=== PATIENT | male | born 1945 | race Caucasian/White ===

== ENCOUNTER 2018-03-17 07:44 | Inpatient (IN) | payer MEDICARE, OTHER ==
--- NOTE | 2018-03-17 08:19 | ED PDOC ---
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 Denies trauma. Denies fever. Denies hip pain. Denies acute skin discoloration. Denies loss of sensation. He reported no chest pain or shortness of breath. Denies palpitations. 03/18/18 07:56 Time/Duration: 4-6 hours Symptom Onset: Sudden Symptom Course: Unchanged Quality: Aching Activities at Onset: Light Context: Home Past Medical History - Provider Review Nursing Documentation Reviewed: Yes - Infectious Disease Hx of Infectious Diseases: None - Cardiac Hx Cardiac Disorders: Yes Hx Hypertension: Yes - Pulmonary Hx Respiratory Disorders: No - Neurological Hx Neurological Disorder: No - HEENT Hx HEENT Disorder: No - Renal Hx Renal Disorder: No - Endocrine/Metabolic Hx Endocrine Disorders: No - Hematological/Oncological Hx Blood Disorders: Yes Other/Comment: DVT - Integumentary Hx Dermatological Disorder: No - Musculoskeletal/Rheumatological Hx Musculoskeletal Disorders: No - Gastrointestinal Hx Gastrointestinal Disorders: No - Genitourinary/Gynecological Hx Genitourinary Disorders: Yes Hx Prostate Problems: Yes - Psychiatric Hx Psychophysiologic Disorder: No Hx Substance Use: No Family/Social History - Physician Review Nursing Documentation Reviewed: Yes Family/Social History: No Known Family HX Smoking Status: Never Smoked Hx Alcohol Use: No Hx Substance Use: No Allergies/Home Meds Allergies/Adverse Reactions: Allergies Penicillins Allergy (Verified 03/17/18 08:00) SHORTNESS OF BREATH Home Medications: Home Meds Medication Instructions Recorded Confirmed Benazepril HCl [Lotensin] 40 mg PO DAILY 03/17/18 03/17/18 Doxazosin [Cardura] 4 mg PO DAILY 03/17/18 03/17/18 Metoprolol Tartrate [Lopressor] 50 mg PO DAILY 03/17/18 03/17/18 Simvastatin [Zocor] 20 mg PO DAILY 03/17/18 03/17/18 Tamsulosin [Flomax] 0.4 mg PO BID 03/17/18 03/17/18 amLODIPine [Norvasc] 5 mg PO DAILY 03/17/18 03/17/18 Review of Systems - Review of Systems Constitutional: absent: Fevers Respiratory: absent: SOB Cardiovascular: Edema, Calf Pain (Left calf pain). absent: Chest Pain, Palpitations, QUINN Gastrointestinal: absent: Abdominal Pain, Diarrhea, Nausea, Vomiting Musculoskeletal: absent: Back Pain Skin: Rash Neurological: absent: Headache, Dizziness, Focal Weakness Endocrine: absent: Polyuria Hemo/Lymphatic: absent: Easy Bleeding, Easy Bruising Psychiatric: absent: Depression Physical Exam - Physical Exam Narrative Physical Exam (Text): 03/17/18 08:21 Head: Atraumatic. Normocephalic. Eyes: PERRL. EOMI. Conjunctivae are not pale. ENT: Mucous membranes are moist and intact. Oropharynx is clear and symmetric. Neck: Supple. No jvd. No meningeal signs. Cardiovascular: Tachycardic. Systolic murmur. Pulmonary/Chest: No evidence of respiratory distress. Clear to auscultation bilaterally. No wheezing, rales or rhonchi. Abdominal: Obese. Nontender. Back: No CVA tenderness. Extremities: Bilateral lower extremity edema. Left lower extremity is edematous , tender to palpation in left calf with overlying erythema. Intact senstation to touch. No achilles pain. No pus or drainage. No knee or hip pain. There is PALPABLE DP pulse in lower extremity. Skin: Erythema and edema noted to left lower extremity. Neurological: Alert, awake, and oriented. No slurred speech. Motor strength intact in lower extremity. Sensation intact. Psychiatric: Good eye contact. No expression of depression or suicidal ideation. Vital Signs Reviewed: Yes Vital Signs Temp Pulse Resp BP Pulse Ox 03/17/18 12:45 112 H 18 127/53 L 03/17/18 11:30 112 H 19 127/53 L 99 03/17/18 09:48 97 F L 116 H 19 147/84 98 Temperature: Afebrile Blood Pressure: Hypertensive Pulse: Tachycardic Appearance: Positive for: Uncomfortable Pain Distress: Moderate Mental Status: Positive for: Alert and Oriented X 3 Medical Decision Making ED Course and Treatment: 03/17/18 08:22 Impression: 72 year old male presents to the Emergency department complaining of left calf discomfort since 3 am this morning. Differential Diagnosis included but are not limited to: DVT , peripheral vascular disease, arrhythmia, atrial fibrillation, pulmonary embolism, cellulitis Plan: -- EKG -- Labs -- Chest X-ray -- Urinalysis -- Reassess and disposition Prior Visits: Notes and results from previous visits were reviewed. Progress Notes: Patient reports that he has prior hx of DVT in left leg. States that he at one time took Warfarin but currently discontinued. He reports sudden onset of left lower leg pain in calf. He is currently neuro intact. Morphine administered for pain. On monitor he is noted to be tachycardic. He denies any knowledge of prior history of any heart arrhythmias. No prior visits are noted here. He denies any chest pain or shortness of breath with exertion. I discussed abnormal EKG and heart rhythm with patient in laymen's terms. I discussed treatment plan with patient including ordering iv pain medication as well as ultrasound. He continues to deny any chest pain or shortness of breath. Ultrasound negative for DVT. Pain improved with serial exams. He has a palpable pulse, warm foot, no loss of sensation. NO trauma reported. Ddimer elevated. He remains tachycardic even after pain control. Right bundle branch block noted. No prior ekg available as patient's physician in [place]. I have ordered CT angio of chest to evaluate for PE. I reviewed indications for this test including tachycardia, RBBB, elevated ddimer. I spent 5 minutes reviewed labs and differential diagnosis and abnormal heart rhythm. He initially consents to CT angio. When patient went to CT scan, tech reports "the patient doesn't think he needs this test and is refusing it now". Patient returned to ED. Denies chest pain or shortness of breath, Remains tachycardic. He is agreeable to initiating Heparin due to risk of pulmonary embolism and elevated ddimer. Risks/benefits of this reviewed. Witness, RN present. Patient has given me permission for me to speak to her daughter on the phone. Labs and ekg and initial results reviewed with daughter. Patient agreeable to admission and heparin. He is agreeable to CT angio of chest. Patient's case d.w hospitalist who accepts admission. I have endorsed CT angio directly to hospitalist team Dr. Haque for follow-up and evaluation. Patient requires serial exams of lower extremity, but he remains comfortable. If pain persistent suggest arterial study, suggest serial exams and neurovacular checks to lower extremity. In Emergency Department foot is warm with palpable pulse. Heparin has been continued. Reassessment Condition: Re-examined - Lab Interpretations Lab Results: 03/17/18 07:55 03/17/18 07:55 Lab Results 03/17/18 08:24: POC Glucose (mg/dL) 169 H 03/17/18 07:55: Sodium 143, Potassium 3.9, Chloride 100, Carbon Dioxide 28, Anion Gap 19, BUN 19, Creatinine 0.7 L, Est GFR ( Amer) > 60, Est GFR ( Non-Af Amer) > 60, Random Glucose 197 H, Calcium 9.7, Total Bilirubin 0.4, AST 21, ALT 28, Alkaline Phosphatase 101, Lactate Dehydrogenase 467, Total Creatine Kinase 46, Troponin I < 0.01, NT-Pro-B Natriuret Pep 205, Total Protein 8.2, Albumin 4.6, Globulin 3.6, Albumin/Globulin Ratio 1.3 03/17/18 07:55: PT 11.1, INR 0.97, APTT 28.9, D-Dimer, Quantitative 2720 H 03/17/18 07:55: WBC 12.9 H, RBC 4.64, Hgb 14.2, Hct 41.0 L, MCV 88.4, MCH 30.6, MCHC 34.6, RDW 13.0, Plt Count 170, MPV 9.5, Gran % 88.4 H, Lymph % (Auto) 4.6 L , Brooks % (Auto) 6.6 H, Eos % (Auto) 0.2 L, Baso % (Auto) 0.2, Gran # 11.43 H, Lymph # (Auto) 0.6 L, Brooks # (Auto) 0.9 H, Eos # (Auto) 0.0, Baso # (Auto) 0.02 , Neutrophils % (Manual) 77 H, Band Neutrophils % 9 H, Lymphocytes % (Manual) 6 L, Monocytes % (Manual) 6, Eosinophils % (Manual) 2, Platelet Evaluation Normal - RAD Interpretation Radiology Orders: 03/17/18 08:17 CHEST PORTABLE [RAD] Stat 03/17/18 08:36 DUPLEX LOWER EXTRM VEIN LEFT [US] Stat - EKG Interpretation Interpreted by ED Physician: Yes Type: 12 lead EKG - Medication Orders Current Medication Orders: Amlodipine Besylate (Norvasc) 5 mg PO DAILY [facility] Aspirin (Aspirin Chewable) 81 mg PO DAILY [facility] Atorvastatin Calcium (Lipitor) 10 mg PO DIN [facility] Last Admin: 03/17/18 17:31 Dose: 10 mg Gabapentin (Neurontin) 300 mg PO DAILY [facility] PRN Reason: Protocol Heparin Sodium/Sodium Chloride (Heparin 01282 Units/250ml 1/2 Normal Saline) 25 ,000 units in 250 mls @ 18.885 mls/hr IV .[id number] PRN; Protocol; 18 UNITS/KG/HR PRN Reason: ADJUST RATE PER PROTOCOL Last Titration: 03/18/18 00:20 Dose: 17 units/kg/hr, 17.836 mls/hr Titration Intervention Document 03/18/18 00:20 FDE (Rec: 03/18/18 00:20 FDE [id number]) Titration Intake Titration Intake 50 Cumulative Intake 50 Cumulative Intake (Rx) 300 Waste Amount 0 Container Volume 200 Titration Dosing Titration Dose 17 IV Rate 17.836 Intake/Decrease Decreased Cumulative Dose 38194 Ceftriaxone Sodium (Rocephin 1 Gram Ivpb) 1 gm in 100 mls @ 100 mls/hr IVPB DAILY [facility] PRN Reason: Protocol Insulin Human Lispro (Humalog Low) 0 units SC ACHS [facility] PRN Reason: Protocol Last Admin: 03/17/18 21:43 Dose: Not Given Non-Admin Reason: Blood Sugar Parameter [facility] Blood Glucose Document 03/17/18 21:43 JOHN (Rec: 03/17/18 21:44 [id number] Blood Glucose Finger Stick Blood Glucose (70-120) 140 Metoprolol Tartrate (Lopressor) 50 mg PO DAILY [facility] Morphine Sulfate (Morphine) 2 mg IVP Q6H PRN PRN Reason: Pain, moderate (4-7) Last Admin: 03/17/18 19:08 Dose: 2 mg MAR Pain Assessment Document 03/17/18 19:08 FRIDA (Rec: 03/17/18 19:08 FRIDA [id number]) Pain Reassessment Is this a pain reassessment? No Sleep Is patient sleeping during reassessment? No Presence of Pain Presence of Pain Yes IVP Administration Document 03/17/18 19:08 FRIDA (Rec: 03/17/18 19:08 FRIDA [id number]) Charges for Administration # of IVP Administrations 1 Re-Assess: MAR Pain Assessment Document 03/17/18 20:08 KOPPS (Rec: 03/17/18 21:23 KOS [id number]) Pain Reassessment Is this a pain reassessment? Yes Sleep Is patient sleeping during reassessment? No Presence of Pain Presence of Pain No Pain Scale Used Pain Scale Used Numeric Pantoprazole Sodium (Protonix Ec Tab) 40 mg PO DAILY SERGIO Tamsulosin HCl (Flomax) 0.4 mg PO DAILY SERGIO Discontinued Medications Gabapentin (Neurontin) 300 mg PO STAT STA PRN Reason: Protocol Stop: 03/17/18 22:00 Last Admin: 03/17/18 22:07 Dose: 300 mg Behavioural Document 03/17/18 22:07 KOPPS (Rec: 03/17/18 22:07 KOPPS [id number]) Maintenance Maintenance Dose Yes Nonmedicinal Nonmedicinal Interventions Redirect Therapeutic Communication Activity Behavior Behavior for Medication: Anxiety Re-Assess: Reassess Psych Meds Document 03/17/18 23:07 KOJESSICAS (Rec: 03/18/18 05:27 KOPPS [id number]) Reassess Psych Med Effective Heparin Sodium (Porcine) (Heparin) 4,000 units IV ONCE ONE PRN Reason: Protocol Stop: 03/17/18 09:53 Last Admin: 03/17/18 10:34 Dose: 4,000 units eMAR Start Stop Document 03/17/18 10:34 GMI (Rec: 03/17/18 10:35 GMI [id number]) Intravenous Solution Start Date 03/17/18 Start Time 10:34 End Date 03/17/18 End time 10:35 Total Infusion Time 1 [facility] aPTT Document 03/17/18 10:34 GMI (Rec: 03/17/18 10:35 GMI [id number]) aPTT aPTT (secs) 28.9 Heparin Sodium (Porcine) (Heparin) 4,192 units IVP STAT STA PRN Reason: Protocol Stop: 03/17/18 18:59 Last Admin: 03/17/18 19:05 Dose: 4,192 units MAR aPTT Document 03/17/18 19:05 BK (Rec: 03/17/18 19:05 BK [id number]) aPTT aPTT (secs) 42.7 IVP Administration Document 03/17/18 19:05 BK (Rec: 03/17/18 19:05 BK [id number]) Charges for Administration # of IVP Administrations 1 Metoprolol Tartrate (Lopressor) 50 mg PO STAT STA Stop: 03/17/18 21:25 Last Admin: 03/17/18 22:07 Dose: 50 mg MAR Pulse and Blood Pressure Document 03/17/18 22:07 KOPPS (Rec: 03/17/18 22:07 KOPPS [id number]) Pulse Pulse Rate (60-90 beats/min) 111 Blood Pressure Blood Pressure (100/60-150/90 mm Hg) 168/90 Morphine Sulfate (Morphine) 2 mg IVP STAT STA Stop: 03/17/18 08:30 Last Admin: 03/17/18 08:37 Dose: 2 mg [facility] Pain Assessment Document 03/17/18 08:37 JOL (Rec: 03/17/18 08:38 JOL [id number]) Pain Reassessment Is this a pain reassessment? No Sleep Is patient sleeping during reassessment? No Presence of Pain Presence of Pain Yes Pain Scale Used Pain Scale Used Numeric Location Left, Right or Bilateral Left Upper or Lower Lower Pain Location Body Site Leg Description Intensity of Pain at present 9 Acceptable Level of Pain 2 Pain Behavior Irritability Withdrawal from Touch Restlessness Facial Grimacing Aggravating Factors ADL's IVP Administration Document 03/17/18 08:37 JOL (Rec: 03/17/18 08:38 JOL [id number]) Charges for Administration # of IVP Administrations 1 Re-Assess: MAR Pain Assessment Document 03/17/18 09:37 GMI (Rec: 03/17/18 09:39 GMI [id number]) Pain Reassessment Is this a pain reassessment? Yes Sleep Is patient sleeping during reassessment? No Presence of Pain Presence of Pain Yes Pain Scale Used Pain Scale Used Numeric Location Left, Right or Bilateral Left Upper or Lower Lower Pain Location Body Site Leg Description Description Constant Intensity of Pain at present 10 Pain Behavior Moaning Irritability Aggravating Factors None Alleviating Factors/Management Medication Techniques Alleviating Factors Distraction Pain not relieved and LIP/MD was Yes notified Morphine Sulfate (Morphine) 4 mg IVP STAT STA Stop: 03/17/18 09:34 Last Admin: 03/17/18 09:45 Dose: 4 mg MAR Pain Assessment Document 03/17/18 09:45 GMI (Rec: 03/17/18 09:46 GMI [id number]) Pain Reassessment Is this a pain reassessment? Yes Sleep Is patient sleeping during reassessment? No Presence of Pain Presence of Pain Yes Pain Scale Used Pain Scale Used Numeric Location Left, Right or Bilateral Left Upper or Lower Lower Pain Location Body Site Leg Description Description Constant Intensity of Pain at present 10 Pain Behavior Irritability Facial Grimacing Aggravating Factors None Alleviating Factors/Management Medication Techniques Position Change Alleviating Factors Distraction IVP Administration Document 03/17/18 09:45 GMI (Rec: 03/17/18 09:46 GMI [id number]) Charges for Administration # of IVP Administrations 1 Re-Assess: [facility] Pain Assessment Document 03/17/18 10:45 GMI (Rec: 03/17/18 10:54 GMI [id number]) Pain Reassessment Is this a pain reassessment? Yes Morphine Sulfate (Morphine) 2 mg IVP STAT STA Stop: 03/17/18 10:42 Last Admin: 03/17/18 10:51 Dose: 2 mg [facility] Pain Assessment Document 03/17/18 10:51 GMI (Rec: 03/17/18 10:52 GMI [id number]) Pain Reassessment Is this a pain reassessment? Yes Sleep Is patient sleeping during reassessment? No Presence of Pain Presence of Pain Yes Pain Scale Used Pain Scale Used Numeric Location Left, Right or Bilateral Left Upper or Lower Lower Pain Location Body Site Leg Description Description Intermittent Intensity of Pain at present 7 Pain Behavior Irritability Facial Grimacing IVP Administration Document 03/17/18 10:51 GMI (Rec: 03/17/18 10:52 GMI [id number]) Charges for Administration # of IVP Administrations 1 Tamsulosin HCl (Flomax) 0.4 mg PO BID SERGIO Tamsulosin HCl (Flomax) 0.4 mg PO STAT STA Stop: 03/17/18 21:29 Last Admin: 03/17/18 22:07 Dose: 0.4 mg - Scribe Statement The provider has reviewed the documentation as recorded by the Nelyibeagle Snyder. All medical record entries made by the Nelyibeagle were at my direction and personally dictated by me. I have reviewed the chart and agree that the record accurately reflects my personal performance of the history, physical exam, medical decision making, and the department course for this patient. I have also personally directed, reviewed, and agree with the discharge instructions and disposition. Disposition/Present on Arrival - Present on Arrival Any Indicators Present on Arrival: Yes History of DVT/PE: Yes History of Uncontrolled Diabetes: No Urinary Catheter: No History of Decub. Ulcer: No History Surgical Site Infection Following: None - Disposition Have Diagnosis and Disposition been Completed?: Yes Diagnosis: Calf pain, Leg edema, Tachycardia, Right bundle branch block, Elevated d-dimer Disposition: HOSPITALIZED Disposition Time: 11:30 Patient Plan: Admission, Telemetry Patient Problems: Current Active Problems Problem Status Onset Calf pain Acute Elevated d-dimer Acute Leg edema Acute Right bundle branch block Acute Tachycardia Acute Condition: SERIOUS
[2018-03-17] MEDS ORDERED: Morphine 2 mg/ml ISec IVP STA ×3 (08:29→10:41)
[2018-03-17 08:32] LABS: BASO # 0.02 K/mm3 (0.0-2.0); BASO % 0.2 % (0.0-3.0); EOS % 0.2 % (1.5-5.0); GRAN # 11.43 (1.4-6.5); GRAN % 88.4 % (50.0-68.0); HEMOGLOBIN 14.2 g/dL (14.0-18.0); LYMPH # 0.6 (1.2-3.4); LYMPH % 4.6 % (22.0-35.0); MEAN CELL VOLUME 88.4 fl (80.0-105.0); MEAN CORPUSCULAR HEMOGLOBIN 30.6 pg (25.0-35.0); MEAN CORPUSCULAR HGB CONC 34.6 g/dl (31.0-37.0); MEAN PLATELET VOLUME 9.5 fl (7.0-11.0); MONO # 0.9 (0.1-0.6); MONO % 6.6 % (1.0-6.0); PLATELET COUNT 170 10^3/uL (120.0-450.0); RBC 4.64 10^6/uL (3.5-6.1); WHITE BLOOD COUNT 12.9 10^3/ul (4.5-11.0)
[2018-03-17 08:42] LABS: ALB/GLOB RATIO 1.3 (1.1-1.8); ALBUMIN 4.6 g/dL (3.0-4.8); ALT/SGPT 28 U/L (7-56); AST/SGOT 21 U/L (17-59); BLOOD UREA NITROGEN 19 mg/dL (7-21); CALCIUM 9.7 mg/dL (8.4-10.5); GFR NON-AFRICAN AMERICAN > 60
[2018-03-17 08:43] LABS: INR 0.97 (0.93-1.08); PROTHROMBIN TIME 11.1 SECONDS (9.4-12.5)
[2018-03-17 08:44] LABS: PARTIAL THROMBOPLASTIN TIME 28.9 Seconds (25.1-36.5)
[2018-03-17 08:53] LABS: B-TYPE NATRIURETIC PEPTIDE 205 pg/mL (0-450); TROPONIN I < 0.01 ng/mL
[2018-03-17] MEDS ORDERED: Morphine 4 mg/ml ISec ONE (09:38)
[2018-03-17] MEDS ORDERED: Heparin25000 units/250ml 1/2NS 25,000 UNITS/250 ML BAG IV PRN (09:52)
[2018-03-17 10:03] VITALS: BMI 37.3
[2018-03-17 10:42] LABS: BAND 9 % (0-2); LYMPHOCYTE 6 % (22.0-35.0); NEUTROPHIL 77 % (50.0-70.0)
[2018-03-17 10:43] LABS: EOSINOPHIL 2 % (0.0-3.0); MONOCYTE 6 % (1.0-6.0); PLATELET ESTIMATE NORMAL (NORMAL)
[2018-03-17] MEDS: Heparin25000 units/250ml 1/2NS 25,000 UNITS/250 ML BAG IV PRN ×2 (11:14→22:25)
--- NOTE | 2018-03-17 11:49 | CP.PCM.HP ---
<Liz Watson - Last Filed: 03/17/18 14:45> History of Present Illness - History of Present Illness History of Present Illness: 72yo male PMHx HTN, DM, BPH, LLE DVT dx 2007 not on anticoag, and obesity presents with LLE pain for 1 night and chronic LLE swelling. Patient reports he woke up around 3am on the morning of admission with 10/10 LLE pain which was sharp and throbbing in nature. Patient was trying to ambulate to the bathroom but was having difficulty doing so secondary to the pain. He said the pain was mostly around his L ankle and non radiating. He denied any recent trauma/fall. Patient used to be on coumadin for 5 years after his LLE DVT was diagnosed, however after researching that warfarin is used to kill mice he decided to stop taking it and his PMD said it was okay for him to only take ASA 81mg daily. Patient has been taking ASA 81mg since then. He did also complain of increasing dryness in his LLE and that his skin at times is tender to touch. Patient denied other acute complaints of dyspnea at rest, dyspnea on exertion, and chest pain. On ROS he denied acute complaints of fever, chills, headache, dizziness, palpitations, cough, abd pain, nausea, vomiting, bowel complaints. Patient is also concerned that his BPH is worsening as he has had increased nocturia over the past couple of months now having to use the bathroom 3-4 times /night. PMHx:HTN, DM, BPH, LLE DVT dx 2008 not on anticoag, and obesity PSurgHx: non PProcedure: colonoscopy 2008 Meds: pls see chart ALL: PCN FamHx: father HTN SocHx: denies EtOH, tobacco, drug use. and lives in [place]. Is able to ambulate 10 blocks without cane/walker [place]: [place] Present on Admission - Present on Admission Any Indicators Present on Admission: Yes History of DVT/PE: Yes History of Uncontrolled Diabetes: No Urinary Catheter: No Decubitus Ulcer Present: No Review of Systems - Review of Systems All systems: reviewed and no additional remarkable complaints except Review of Systems: as per HPI Past Patient History - Infectious Disease Hx of Infectious Diseases: None - Past Social History Smoking Status: Never Smoked - CARDIAC Hx Cardiac Disorders: Yes Hx Hypertension: Yes - PULMONARY Hx Respiratory Disorders: No - NEUROLOGICAL Hx Neurological Disorder: No - HEENT Hx HEENT Problems: No - RENAL Hx Chronic Kidney Disease: No - ENDOCRINE/METABOLIC Hx Endocrine Disorders: No - HEMATOLOGICAL/ONCOLOGICAL Hx Blood Disorders: Yes Other/Comment: DVT - INTEGUMENTARY Hx Dermatological Problems: No - MUSCULOSKELETAL/RHEUMATOLOGICAL Hx Musculoskeletal Disorders: No - GASTROINTESTINAL Hx Gastrointestinal Disorders: No - GENITOURINARY/GYNECOLOGICAL Hx Genitourinary Disorders: Yes Hx Prostate Problems: Yes - PSYCHIATRIC Hx Psychophysiologic Disorder: No Hx Substance Use: No - SURGICAL HISTORY Hx Surgeries: No Meds Allergies/Adverse Reactions: Allergies Allergy/AdvReac Type Severity Reaction Status Date / Time Penicillins Allergy SHORTNESS Verified 03/17/18 08:00 OF BREATH Physical Exam - Constitutional Appears: Non-toxic, No Acute Distress - Head Exam Head Exam: ATRAUMATIC, NORMAL INSPECTION, NORMOCEPHALIC - Eye Exam Eye Exam: EOMI, Normal appearance, PERRL. absent: Conjunctival injection, Scleral icterus Pupil Exam: NORMAL ACCOMODATION - ENT Exam ENT Exam: Mucous Membranes Moist - Neck Exam Neck exam: Positive for: Full Rom, Normal Inspection. Negative for: Lymphadenopathy - Respiratory Exam Respiratory Exam: Clear to Auscultation Bilateral, NORMAL BREATHING PATTERN. absent: Accessory Muscle Use, Rales, Rhonchi, Wheezes, Respiratory Distress - Cardiovascular Exam Cardiovascular Exam: Tachycardia, +S1, +S2, Systolic Murmur - GI/Abdominal Exam GI & Abdominal Exam: Normal Bowel Sounds, Soft. absent: Firm, Guarding, Hernia , Rigid, Tenderness - Rectal Exam Rectal Exam: Deferred - Extremities Exam Extremities exam: Negative for: normal inspection Additional comments: LLE swollen with chronic venous stasis skin changes and warm to touch - Back Exam Back exam: NORMAL INSPECTION. absent: rash noted - Neurological Exam Neurological exam: Alert, CN II-XII Intact, Oriented x3 - Psychiatric Exam Psychiatric exam: Normal Affect, Normal Mood - Skin Skin Exam: Normal Color, Warm Results - Vital Signs Recent Vital Signs: Last Vital Signs Temp 97 F L 03/17/18 09:48 Pulse 112 H 03/17/18 11:30 Resp 19 03/17/18 11:30 BP 127/53 L 03/17/18 11:30 Pulse Ox 99 03/17/18 11:30 - Labs Result Diagrams: 03/17/18 07:55 03/17/18 07:55 Labs: Laboratory Results - last 24 hr 03/17/18 03/17/18 03/17/18 07:55 07:55 07:55 WBC 12.9 H RBC 4.64 Hgb 14.2 Hct 41.0 L MCV 88.4 MCH 30.6 MCHC 34.6 RDW 13.0 Plt Count 170 MPV 9.5 Gran % 88.4 H Lymph % (Auto) 4.[address] % (Auto) 6.6 H Eos % (Auto) 0.2 L Baso % (Auto) 0.2 Gran # 11.43 H Lymph # (Auto) 0.[address] [place] # (Auto) 0.9 H Eos # (Auto) 0.0 Baso # (Auto) 0.02 Neutrophils % (Manual) 77 H Band Neutrophils % 9 H Lymphocytes % (Manual) 6 L Monocytes % (Manual) 6 Eosinophils % (Manual) 2 Platelet Evaluation Normal PT 11.1 INR 0.97 APTT 28.9 D-Dimer, Quantitative 2720 H Sodium 143 Potassium 3.9 Chloride 100 Carbon Dioxide 28 Anion Gap 19 BUN 19 Creatinine 0.7 L Est GFR ( Amer) > 60 Est GFR (Non-Af Amer) > 60 POC Glucose (mg/dL) Random Glucose 197 H Calcium 9.7 Total Bilirubin 0.4 AST 21 ALT 28 Alkaline Phosphatase 101 Lactate Dehydrogenase 467 Total Creatine Kinase 46 Troponin I < 0.01 NT-Pro-B Natriuret Pep 205 Total Protein 8.2 Albumin 4.6 Globulin 3.6 Albumin/Globulin Ratio 1.3 03/17/18 08:24 WBC RBC Hgb Hct MCV MCH MCHC RDW Plt Count MPV Gran % Lymph % (Auto) [place] % (Auto) Eos % (Auto) Baso % (Auto) Gran # Lymph # (Auto) [place] # (Auto) Eos # (Auto) Baso # (Auto) Neutrophils % (Manual) Band Neutrophils % Lymphocytes % (Manual) Monocytes % (Manual) Eosinophils % (Manual) Platelet Evaluation PT INR APTT D-Dimer, Quantitative Sodium Potassium Chloride Carbon Dioxide Anion Gap BUN Creatinine Est GFR ( Amer) Est GFR (Non-Af Amer) POC Glucose (mg/dL) 169 H Random Glucose Calcium Total Bilirubin AST ALT Alkaline Phosphatase Lactate Dehydrogenase Total Creatine Kinase Troponin I NT-Pro-B Natriuret Pep Total Protein Albumin Globulin Albumin/Globulin Ratio Assessment & Plan - Assessment and Plan (Free Text) Assessment: 72yo male PMHx HTN, DM, BPH, LLE DVT dx 2007 not on anticoag, and obesity presents with LLE pain for 1 night and chronic LLE swelling. Patient admitted to TELE to r/o DVT vs PE LLE DVT vs PE -f/u venous doppler LE -f/u CTA -Heparin gtt in light of history of DVT and tachycardia -Morphine for pain -f/u Echo -f/u troponin x 2 -Cardio consulted -if DVT or PE positive consider HemeOnc consultation Leukocytosis -likely reactionary -f/u blood cultures x 2 -f/u UA in light of patient's nocturia -Rocephin qd for empiric tx of cellulitis of LLE -Podiatry consulted Hx of HTN -continue home meds -ASA 81mg qd -Norvasc 5mg qd -Metoprolol 50mg qd -Lipitor 10mg qd -f/u lipid panel Hx of DM2 -f/u [id number] 300mg qd -RISS low -Accucheck -HHD with ALF Hx of BPH -f/u PSA -recommend outpatient f/u Hx of obesity -data center engineer consultation GI ppx: protonix 40mg po qd DVT ppx: on heparin gtt PT/OT Diet: HHD with ALF Discussed with Dr. Shabnam Watson PGY2 <Matthew Haque - Last Filed: 03/17/18 15:56> Results - Vital Signs Recent Vital Signs: Last Vital Signs Temp 98.0 F 03/17/18 13:00 Pulse 97 H 03/17/18 13:00 Resp 18 03/17/18 13:00 BP 127/84 03/17/18 13:00 Pulse Ox 96 03/17/18 13:00 - Labs Result Diagrams: 03/17/18 07:55 03/17/18 07:55 Labs: Laboratory Results - last 24 hr 03/17/18 03/17/18 12:29 14:00 Troponin I < 0.01 Urine Color Yellow Urine Appearance Clear Urine pH 6.5 Ur Specific [place] 1.010 Urine Protein Trace H Urine Glucose (UA) Negative Urine Ketones Negative Urine Blood Negative Urine Nitrate Negative Urine Bilirubin Negative Urine Urobilinogen 0.2 Ur Leukocyte Esterase Negative Urine RBC 0 - 2 Urine WBC 0 - 2 Ur Epithelial Cells None Urine Bacteria Occ Attending/Attestation - Attestation I have personally seen and examined this patient.: Yes I have fully participated in the care of the patient.: Yes I have reviewed all pertinent clinical information: Yes Notes (Text): 03/17/18 15:48 72 year old male with past medical history of hypertension, LLE DVT (2007) and obesity who presents with LLE pain, erythema and swelling. He was found to have leukocytosis, tachycardia and elevated D-dimer. He is started on heparin drip while awaiting LE dopplers to rule out DVT (prelimary study is limited but negative) and CT angiogram to rule out PE. Echocardiogram is ordered. Will start on antibiotics for possible LE cellulitis superimposed on chronic venous stasis. Podiatry evaluation was requested as well. Matthew Haque MD Hospitalist.
[2018-03-17 12:39] LABS: PH,URINE 6.5 (4.7-8.0); URINE BILIRUBIN NEGATIVE (NEGATIVE); URINE BLOOD NEGATIVE (NEGATIVE); URINE GLUCOSE (UA) NEGATIVE (NEGATIVE); URINE LEUKOCYTE ESTERASE NEGATIVE Leu/uL (NEGATIVE); URINE PROTEIN TRACE mg/dL (<30 mg/dL); URINE UROBILINOGEN 0.2 E.U./dL (<1 E.U./dL)
[2018-03-17 12:42] LABS: URINE APPEARANCE CLEAR (CLEAR); URINE COLOR YELLOW (YELLOW)
[2018-03-17] MEDS ORDERED: Morphine 2 mg/2 mL syringe IVP PRN (12:54)
[2018-03-17] MEDS ORDERED: Morphine 2 mg/ml ISec IVP PRN (12:57)
[2018-03-17 13:33] LABS: URINE BACTERIA OCC (NEG); URINE RBC 0 - 2 /hpf (0-2); URINE WBC 0 - 2 /hpf (0-6)
--- NOTE | 2018-03-17 13:43 | CARD ---
APPROVED REPORT EKG Measurement Heart [id number] <Conclusion> Sinus tachycardia with fusion complexes Right bundle branch block Anteroseptal infarct, age undetermined Abnormal ECG
--- NOTE | 2018-03-17 16:22 | RAD ---
HISTORY: tachycardia COMPARISON: No prior. FINDINGS: LUNGS: No active pulmonary disease. PLEURA: No significant pleural effusion identified, no pneumothorax apparent. CARDIOVASCULAR: Borderline/mild cardiomegaly. OSSEOUS STRUCTURES: No significant abnormalities. VISUALIZED UPPER ABDOMEN: Normal. OTHER FINDINGS: None. IMPRESSION: No active disease.
[2018-03-17] MEDS: Insulin Lispro (humaLOG) LOW Coverage SC SCH ×2 (17:31→21:43)
--- NOTE | 2018-03-17 17:46 | US ---
PROCEDURE: Left lower extremity venous US HISTORY: Leg pain and swelling. Evaluate for DVT. PHYSICIAN(S): Vince Hilario MD. TECHNIQUE: Duplex sonography and color-flow Doppler with graded compression were used to evaluate the deep venous system of the left lower extremity. The exam is limited by edema. FINDINGS: The visualized deep venous system of the left lower extremity is sonographically normal and compressible. Normal wave forms and augmentation are seen. There is no sonographic evidence for deep venous thrombosis in the visualized segments of the left lower extremity. IMPRESSION: 1. No sonographic evidence for deep venous thrombosis in the visualized segments of the left lower extremity.
[2018-03-17] MEDS ORDERED: Iodixanol 320 MG/ML 100 ML BOTTLE IV ONE (23:47)
[2018-03-18 04:17] LABS: URINE BILIRUBIN NEGATIVE (NEGATIVE); URINE BLOOD NEGATIVE (NEGATIVE); URINE GLUCOSE (UA) NEGATIVE (NEGATIVE); URINE LEUKOCYTE ESTERASE NEGATIVE Leu/uL (NEGATIVE); URINE PROTEIN NEGATIVE mg/dL (<30 mg/dL); URINE UROBILINOGEN 0.2 E.U./dL (<1 E.U./dL)
[2018-03-18 04:27] LABS: URINE APPEARANCE CLEAR (CLEAR); URINE COLOR YELLOW (YELLOW)
[2018-03-18 07:10] LABS: BASO # 0.02 K/mm3 (0.0-2.0); BASO % 0.2 % (0.0-3.0); EOS # 0.1 (0.0-0.7); EOS % 0.9 % (1.5-5.0); GRAN # 7.3 (1.4-6.5); GRAN % 74.4 % (50.0-68.0); HEMOGLOBIN 13.3 g/dL (14.0-18.0); LYMPH # 1.6 (1.2-3.4); LYMPH % 16.6 % (22.0-35.0); MEAN CELL VOLUME 89.3 fl (80.0-105.0); MEAN CORPUSCULAR HEMOGLOBIN 30.9 pg (25.0-35.0); MEAN CORPUSCULAR HGB CONC 34.5 g/dl (31.0-37.0); MEAN PLATELET VOLUME 9.3 fl (7.0-11.0); MONO # 0.8 (0.1-0.6); MONO % 7.9 % (1.0-6.0); RBC 4.31 10^6/uL (3.5-6.1); RED CELL DISTRIBUTION WIDTH 13.4 % (11.5-14.5); WHITE BLOOD COUNT 9.8 10^3/ul (4.5-11.0)
[2018-03-18 07:25] LABS: LDL CHOLESTEROL 50 mg/dL (0-129)
[2018-03-18 07:37] LABS: ALB/GLOB RATIO 1.2 (1.1-1.8); ALT/SGPT 21 U/L (7-56); AST/SGOT 21 U/L (17-59); BLOOD UREA NITROGEN 15 mg/dL (7-21); CALCIUM 9.2 mg/dL (8.4-10.5); GFR NON-AFRICAN AMERICAN > 60; HDL CHOLESTEROL 53 mg/dL (29-60)
--- NOTE | 2018-03-18 07:37 | CON ---
DATE: REASON FOR CONSULTATION AND FOLLOWUP: Swelling of the legs. REASON FOR DICTATION: Covering Dr. Beckwith. BRIEF CLINICAL HISTORY: This is a 72-year-old male with past medical history significant for diabetes, hypertension, hyperlipidemia, benign prostatic hypertrophy, history of DVT in the past, who on anticoagulation, came in complaining of leg swelling for one week and now pain and swelling. Denies any chest pain, shortness of breath, any palpitation. Patient walks 40 minutes. PAST MEDICAL HISTORY: Significant for hypertension, diabetes, BPH, DVT in 2007, obesity, sleep disorder, possible sleep apnea. PAST SURGICAL HISTORY: None. PROCEDURE: Patient had endoscopy and colonoscopy 2 to 3 years ago. ALLERGIES: ALLERGIC TO PENICILLIN. SOCIAL HISTORY: Denies any history of alcohol abuse. Denies any history of tobacco abuse. Lives in [place], some of the family members lives in [place]. So, the patient drives back and forth from [place] to [place]. CURRENT MEDICATIONS: Patient is taking at home Flomax 0.4 mg daily, metoprolol tartarate 50 mg daily, benazepril mg daily, Cardura 4 mg daily, amlodipine 5 mg daily, simvastatin 200 mg daily, was taking metformin for diabetes, but it causes dryness in the mouth, so the patient stopped taking it after 4 weeks. REVIEW OF SYSTEMS: As per HPI. PHYSICAL EXAMINATION: VITAL SIGNS: As follows, temperature afebrile, heart rate 97, blood pressure 127/84. HEENT: PERRLA. Extraocular muscles intact. NECK: Supple. No carotid bruits or thyromegaly. CHEST: Clear to auscultation. HEART: S1 and S2 regular. ABDOMEN: Soft. EXTREMITIES: Clubbing and cyanosis negative. LABORATORY DATA: EKG shows sinus tachycardia, heart rate 120, right bundle branch block. Blood workup as follows; WBC 12.9, hemoglobin , hematocrit 41, platelet count 170. Chemistry shows sodium 140, potassium 3.9, chloride 108, carbon dioxide 28, anion gap of ____, BUN 19, creatinine 0.7. INR on admission 0.97. IMPRESSION: Swelling of the legs, rule out deep venous thrombosis, aortic stenosis on auscultation noted, swelling of the leg, diabetes , hypertension, hyperlipidemia. RECOMMENDATION: Started heparin. Echo to assess LV function and rule out aortic stenosis, severe. Continue heparin. Lipid profile, TSH, hemoglobin A1c. We will transfer care tomorrow to Dr. Beckwith. Thank you Dr. Haque for providing us the opportunity in taking care of Patrick Hartman. Krupa Alvarez MD
[2018-03-18] MEDS: Insulin Lispro (humaLOG) LOW Coverage SC SCH ×4 (08:21→21:51)
[2018-03-18] MEDS ORDERED: Iohexol 350 MG/100 ML VIAL ONE (09:22)
[2018-03-18] MEDS: Pantoprazole 40 mg EC Tab PO SCH (09:32)
--- NOTE | 2018-03-18 10:47 | CT ---
PROCEDURE: CT Chest with contrast (Pulmonary Angiogram) HISTORY: r/o PE COMPARISON: Plain radiographs from 03/17/2018. TECHNIQUE: Axial computed tomography images were obtained of the chest in the pulmonary arterial phase of enhancement. Coronal and sagittal reformatted images were created and reviewed. Intravenous contrast dose: 100 mL Omnipaque 350 Radiation dose: Total exam DLP = 556.40 mGy-cm. This CT exam was performed using one or more of the following dose reduction techniques: Automated exposure control, adjustment of the mA and/or kV according to patient size, and/or use of iterative reconstruction technique. FINDINGS: PULMONARY ARTERIES: There are no filling defects in the pulmonary arteries to suggest acute pulmonary embolism. AORTA: There is aneurysm of the ascending aorta measuring 4.4 x 4.2 cm. . LUNGS: The lungs are well inflated and clear. There is dependent atelectasis in the posterior lungs. No nodule, mass or pulmonary consolidation. PLEURAL SPACES: No effusion or pneuomothorax. HEART: There is mild cardiomegaly. No significant pericardial effusion. There are atherosclerotic coronary artery calcifications. LYMPH NODES: No pathologic lymphadenopathy. BONES, CHEST WALL: Multilevel degenerative changes in the spine. No fracture or destructive lesion OTHER FINDINGS: Unremarkable. IMPRESSION: No CTA evidence for acute pulmonary embolism. Clear lungs. Aneurysm of the ascending aorta measuring 4.4 x 4.2 cm.
--- NOTE | 2018-03-18 10:53 | CP.PCM.CON ---
<Yazan Castro - Last Filed: 03/18/18 10:48> History of Present Illness - History of Present Illness History of Present Illness: Podiatry Consult note: Dr. Crouch/Dr. Quezada 72 year old male with PMHx of HTN, DM, BPH, LLE DVT, and obesity was seen and evaluated at bedside for LLE pain. 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 Reports that since then his leg has not gotten any better. Reports that he has always had discoloration to the leg and is always swollen. Denies of any recent injury or trauma to the leg. Denies of having any wounds to the leg. Reports that after the admission the pain has gotten better. Denies of having recent F/N/V/C/SOB/CP/headache. Denies of any other pedal complains at this time. PMHx: HTN, DM, BPH, LLE DVT, Obesity PSHx: Denies Allergies: PCN SHx: denies EtOH, tobacco, drug use. and lives in [place]. Is able to ambulate 10 blocks without cane/walker Review of Systems - Constitutional Constitutional: As Per HPI Past Patient History - Infectious Disease Hx of Infectious Diseases: None - Past Social History Smoking Status: Never Smoked - CARDIAC Hx Cardiac Disorders: Yes Hx Hypertension: Yes - PULMONARY Hx Respiratory Disorders: No - NEUROLOGICAL Hx Neurological Disorder: No - HEENT Hx HEENT Problems: No - RENAL Hx Chronic Kidney Disease: No - ENDOCRINE/METABOLIC Hx Endocrine Disorders: No - HEMATOLOGICAL/ONCOLOGICAL Hx Blood Disorders: Yes Other/Comment: DVT - INTEGUMENTARY Hx Dermatological Problems: No - MUSCULOSKELETAL/RHEUMATOLOGICAL Hx Musculoskeletal Disorders: No - GASTROINTESTINAL Hx Gastrointestinal Disorders: No - GENITOURINARY/GYNECOLOGICAL Hx Genitourinary Disorders: Yes Hx Prostate Problems: Yes - PSYCHIATRIC Hx Psychophysiologic Disorder: No Hx Substance Use: No - SURGICAL HISTORY Hx Surgeries: No Meds Allergies/Adverse Reactions: Allergies Allergy/AdvReac Type Severity Reaction Status Date / Time Penicillins Allergy SHORTNESS Verified 03/17/18 08:00 OF BREATH - Medications Medications: Current Medications Amlodipine Besylate (Norvasc) 5 mg PO DAILY [facility] Last Admin: 03/18/18 09:33 Dose: 5 mg Aspirin (Aspirin Chewable) 81 mg PO DAILY [facility] Last Admin: 03/18/18 09:32 Dose: 81 mg Atorvastatin Calcium (Lipitor) 10 mg PO DIN [facility] Last Admin: 03/17/18 17:31 Dose: 10 mg Gabapentin (Neurontin) 300 mg PO DAILY [facility] PRN Reason: Protocol Last Admin: 03/18/18 09:32 Dose: 300 mg Heparin Sodium/Sodium Chloride (Heparin 68454 Units/250ml 1/2 Normal Saline) 25 ,000 units in 250 mls @ 18.885 mls/hr IV .[id number] PRN; Protocol; 18 UNITS/KG/HR PRN Reason: ADJUST RATE PER PROTOCOL Last Titration: 03/18/18 00:20 Dose: 17 units/kg/hr, 17.836 mls/hr Ceftriaxone Sodium (Rocephin 1 Gram Ivpb) 1 gm in 100 mls @ 100 mls/hr IVPB DAILY [facility] PRN Reason: Protocol Insulin Human Lispro (Humalog Low) 0 units SC ACHS [facility] PRN Reason: Protocol Last Admin: 03/18/18 08:21 Dose: Not Given Metoprolol Tartrate (Lopressor) 50 mg PO BID [facility] Morphine Sulfate (Morphine) 2 mg IVP Q6H PRN PRN Reason: Pain, moderate (4-7) Last Admin: 03/17/18 19:08 Dose: 2 mg Pantoprazole Sodium (Protonix Ec Tab) 40 mg PO DAILY [facility] Last Admin: 03/18/18 09:32 Dose: 40 mg Tamsulosin HCl (Flomax) 0.4 mg PO DAILY [facility] Last Admin: 03/18/18 09:32 Dose: 0.4 mg Physical Exam - Constitutional Appears: Well, Non-toxic, No Acute Distress - Extremities Exam Additional comments: Bilateral LE exam: VASC: DP/PT pulses are faintly palpable, Cap refill time: < 3 sec to all digits , Temp gradient: warm to warm from proximal to distal, 2+ pitting edema noted on the distal medial leg b/l (L>R) DERM: Hemosidrin deposits demonstrating hyperpigmentation noted on the mid leg extending distally bilaterally, no open lesions, no clinical suspicion of active infection NEURO: Protective sensation mildly diminished ORTHO: Prett positive, homman positive, no pain at the ankle joint during AROM or PROM - Neurological Exam Neurological exam: Alert, Oriented x3 - Psychiatric Exam Psychiatric exam: Normal Affect, Normal Mood Results - Vital Signs Recent Vital Signs: Last Vital Signs Temp 98.6 F 03/18/18 05:36 Pulse 110 H 03/18/18 09:33 Resp 20 03/18/18 05:36 BP 148/86 03/18/18 05:36 Pulse Ox 98 03/18/18 05:36 - Labs Result Diagrams: 03/18/18 06:44 03/18/18 06:44 Labs: Laboratory Results - last 24 hr 03/17/18 03/17/18 03/17/18 12:29 14:00 16:22 WBC RBC Hgb Hct MCV MCH MCHC RDW Plt Count MPV Gran % Lymph % (Auto) [place] % (Auto) Eos % (Auto) Baso % (Auto) Gran # Lymph # (Auto) [place] # (Auto) Eos # (Auto) Baso # (Auto) APTT Sodium Potassium Chloride Carbon Dioxide Anion Gap BUN Creatinine Est GFR ( Amer) Est GFR (Non-Af Amer) POC Glucose (mg/dL) 200 H Random Glucose Calcium Phosphorus Magnesium Total Bilirubin AST ALT Alkaline Phosphatase Troponin I < 0.01 Total Protein Albumin Globulin Albumin/Globulin Ratio Triglycerides Cholesterol LDL Cholesterol Direct HDL Cholesterol Prostate Specific Ag TSH 3rd Generation Urine Color Yellow Urine Appearance Clear Urine pH 6.5 Ur Specific [place] 1.010 Urine Protein Trace H Urine Glucose (UA) Negative Urine Ketones Negative Urine Blood Negative Urine Nitrate Negative Urine Bilirubin Negative Urine Urobilinogen 0.2 Ur Leukocyte Esterase Negative Urine RBC 0 - 2 Urine WBC 0 - 2 Ur Epithelial Cells None Urine Bacteria Occ 03/17/18 03/17/18 03/17/18 16:45 21:38 21:50 WBC RBC Hgb Hct MCV MCH MCHC RDW Plt Count MPV Gran % Lymph % (Auto) [place] % (Auto) Eos % (Auto) Baso % (Auto) Gran # Lymph # (Auto) [place] # (Auto) Eos # (Auto) Baso # (Auto) APTT 42.7 H Sodium Potassium Chloride Carbon Dioxide Anion Gap BUN Creatinine Est GFR ( Amer) Est GFR (Non-Af Amer) POC Glucose (mg/dL) 140 H Random Glucose Calcium Phosphorus Magnesium Total Bilirubin AST ALT Alkaline Phosphatase Troponin I 0.02 D Total Protein Albumin Globulin Albumin/Globulin Ratio Triglycerides Cholesterol LDL Cholesterol Direct HDL Cholesterol Prostate Specific Ag TSH 3rd Generation Urine Color Urine Appearance Urine pH Ur Specific [place] Urine Protein Urine Glucose (UA) Urine Ketones Urine Blood Urine Nitrate Urine Bilirubin Urine Urobilinogen Ur Leukocyte Esterase Urine RBC Urine WBC Ur Epithelial Cells Urine Bacteria 03/17/18 03/18/18 03/18/18 22:42 03:30 06:44 WBC 9.8 D RBC 4.31 Hgb 13.3 L Hct 38.5 L MCV 89.3 MCH 30.9 MCHC 34.5 RDW 13.4 Plt Count 176 MPV 9.3 Gran % 74.4 H Lymph % (Auto) 16.6 L [place] % (Auto) 7.9 H Eos % (Auto) 0.9 L Baso % (Auto) 0.2 Gran # 7.30 H Lymph # (Auto) 1.6 [place] # (Auto) 0.8 H Eos # (Auto) 0.1 Baso # (Auto) 0.02 APTT 124.3 H* Sodium Potassium Chloride Carbon Dioxide Anion Gap BUN Creatinine Est GFR ( Amer) Est GFR (Non-Af Amer) POC Glucose (mg/dL) Random Glucose Calcium Phosphorus Magnesium Total Bilirubin AST ALT Alkaline Phosphatase Troponin I Total Protein Albumin Globulin Albumin/Globulin Ratio Triglycerides Cholesterol LDL Cholesterol Direct HDL Cholesterol Prostate Specific Ag TSH 3rd Generation Urine Color Yellow Urine Appearance Clear Urine pH 7.0 Ur Specific [place] <= 1.005 Urine Protein Negative Urine Glucose (UA) Negative Urine Ketones Negative Urine Blood Negative Urine Nitrate Negative Urine Bilirubin Negative Urine Urobilinogen 0.2 Ur Leukocyte Esterase Negative Urine RBC Urine WBC Ur Epithelial Cells Urine Bacteria 03/18/18 03/18/18 03/18/18 06:44 06:44 06:44 WBC RBC Hgb Hct MCV MCH MCHC RDW Plt Count MPV Gran % Lymph % (Auto) [place] % (Auto) Eos % (Auto) Baso % (Auto) Gran # Lymph # (Auto) [place] # (Auto) Eos # (Auto) Baso # (Auto) APTT 170.2 H* Sodium 142 Potassium 3.9 Chloride 100 Carbon Dioxide 31 Anion Gap 15 BUN 15 Creatinine 0.8 Est GFR ( Amer) > 60 Est GFR (Non-Af Amer) > 60 POC Glucose (mg/dL) Random Glucose 154 H Calcium 9.2 Phosphorus 3.6 Magnesium 1.7 Total Bilirubin 0.6 AST 21 ALT 21 Alkaline Phosphatase 70 Troponin I Total Protein 7.3 Albumin 4.0 Globulin 3.3 Albumin/Globulin Ratio 1.2 Triglycerides 61 Cholesterol 123 L LDL Cholesterol Direct 50 HDL Cholesterol 53 Prostate Specific Ag 1.6 TSH 3rd Generation 0.84 Urine Color Urine Appearance Urine pH Ur Specific [place] Urine Protein Urine Glucose (UA) Urine Ketones Urine Blood Urine Nitrate Urine Bilirubin Urine Urobilinogen Ur Leukocyte Esterase Urine RBC Urine WBC Ur Epithelial Cells Urine Bacteria 03/18/18 07:23 WBC RBC Hgb Hct MCV MCH MCHC RDW Plt Count MPV Gran % Lymph % (Auto) [place] % (Auto) Eos % (Auto) Baso % (Auto) Gran # Lymph # (Auto) [place] # (Auto) Eos # (Auto) Baso # (Auto) APTT Sodium Potassium Chloride Carbon Dioxide Anion Gap BUN Creatinine Est GFR ( Amer) Est GFR (Non-Af Amer) POC Glucose (mg/dL) 157 H Random Glucose Calcium Phosphorus Magnesium Total Bilirubin AST ALT Alkaline Phosphatase Troponin I Total Protein Albumin Globulin Albumin/Globulin Ratio Triglycerides Cholesterol LDL Cholesterol Direct HDL Cholesterol Prostate Specific Ag TSH 3rd Generation Urine Color Urine Appearance Urine pH Ur Specific [place] Urine Protein Urine Glucose (UA) Urine Ketones Urine Blood Urine Nitrate Urine Bilirubin Urine Urobilinogen Ur Leukocyte Esterase Urine RBC Urine WBC Ur Epithelial Cells Urine Bacteria Assessment & Plan - Assessment and Plan (Free Text) Assessment: 72 year old male with PMHx of HTN, DM, BPH, LLE DVT, obesity was evaluated for possible DVT manifestation vs. cellulitis Plan: Patient seen and evaluated with attending Dr. Crouch Labs, vitals and charts reviewed - afebrile, WBC @ 9.8 No openings on LE LE US- No evidence of DVT in LLE Lotrisone cream ordered - apply daily Apply compression socks Educated patient to keep the socks on daily and educated to elevate his legs when possible Patient is stable from podiatry standpoint Thank you for the podiatry consult and allowing to take part in patient care Please re-consult if needed - Date & Time Date: 03/18/18 Time: 11:04 <Stevan Crouch - Last Filed: 03/19/18 09:51> Meds - Medications Medications: Current Medications Amlodipine Besylate (Norvasc) 5 mg PO DAILY [facility] Last Admin: 03/18/18 09:33 Dose: 5 mg Aspirin (Aspirin Chewable) 81 mg PO DAILY [facility] Last Admin: 03/18/18 09:32 Dose: 81 mg Atorvastatin Calcium (Lipitor) 10 mg PO DIN [facility] Last Admin: 03/18/18 17:06 Dose: 10 mg Gabapentin (Neurontin) 300 mg PO DAILY [facility] PRN Reason: Protocol Last Admin: 03/18/18 09:32 Dose: 300 mg Ceftriaxone Sodium (Rocephin 1 Gram Ivpb) 1 gm in 100 mls @ 100 mls/hr IVPB DAILY [facility] PRN Reason: Protocol Last Admin: 03/18/18 13:40 Dose: 100 mls/hr Ibuprofen (Motrin Tab) 400 mg PO Q6H PRN PRN Reason: Pain, moderate (4-7) Insulin Human Lispro (Humalog Low) 0 units SC ACHS [facility] PRN Reason: Protocol Last Admin: 03/19/18 08:42 Dose: 1 units Lactic Acid (Lac-Hydrin 12% Lotion (225 G)) 0 gm EXT BID [facility] Last Admin: 03/18/18 18:32 Dose: 1 applic Metoprolol Tartrate (Lopressor) 50 mg PO BID [facility] Last Admin: 03/18/18 17:06 Dose: 50 mg Pantoprazole Sodium (Protonix Ec Tab) 40 mg PO DAILY [facility] Last Admin: 03/18/18 09:32 Dose: 40 mg Tamsulosin HCl (Flomax) 0.4 mg PO DAILY [facility] Last Admin: 03/18/18 09:32 Dose: 0.4 mg Results - Vital Signs Recent Vital Signs: Last Vital Signs Temp 97.8 F 03/19/18 06:00 Pulse 82 03/19/18 06:00 Resp 18 03/19/18 06:00 BP 127/75 03/19/18 06:00 Pulse Ox 97 03/19/18 06:00 - Labs Result Diagrams: 03/19/18 06:30 03/19/18 06:30 Labs: Laboratory Results - last 24 hr 03/18/18 03/18/18 03/18/18 06:44 11:27 16:16 WBC RBC Hgb Hct MCV MCH MCHC RDW Plt Count MPV Gran % Lymph % (Auto) [place] % (Auto) Eos % (Auto) Baso % (Auto) Gran # Lymph # (Auto) [place] # (Auto) Eos # (Auto) Baso # (Auto) Sodium Potassium Chloride Carbon Dioxide Anion Gap BUN Creatinine Est GFR ( Amer) Est GFR (Non-Af Amer) POC Glucose (mg/dL) 179 H 121 H Random Glucose Hemoglobin A1c 7.6 H Calcium Total Bilirubin AST ALT Alkaline Phosphatase Total Protein Albumin Globulin Albumin/Globulin Ratio 03/18/18 03/19/18 03/19/18 21:49 06:30 06:30 WBC 4.5 D RBC 4.34 Hgb 13.1 L Hct 38.6 L MCV 88.9 MCH 30.2 MCHC 33.9 RDW 13.1 Plt Count 168 MPV 9.1 Gran % 60.5 Lymph % (Auto) 23.0 [place] % (Auto) 11.2 H Eos % (Auto) 4.9 Baso % (Auto) 0.4 Gran # 2.71 Lymph # (Auto) 1.0 L [place] # (Auto) 0.5 Eos # (Auto) 0.2 Baso # (Auto) 0.02 Sodium 144 Potassium 4.1 Chloride 102 Carbon Dioxide 31 Anion Gap 15 BUN 16 Creatinine 0.8 Est GFR ( Amer) > 60 Est GFR (Non-Af Amer) > 60 POC Glucose (mg/dL) 154 H Random Glucose 159 H Hemoglobin A1c Calcium 9.3 Total Bilirubin 0.5 AST 21 ALT 23 Alkaline Phosphatase 70 Total Protein 7.4 Albumin 3.9 Globulin 3.5 Albumin/Globulin Ratio 1.1 Attending/Attestation - Attestation I have personally seen and examined this patient.: Yes I have fully participated in the care of the patient.: Yes I have reviewed all pertinent clinical information: Yes
--- NOTE | 2018-03-18 13:05 | CP.PCM.PN ---
<Abby Mcgrath - Last Filed: 03/18/18 13:01> Subjective - Date & Time of Evaluation Date of Evaluation: 03/18/18 Time of Evaluation: 13:01 - Subjective Subjective: Abby Mcgrath, PGY1, Progress note for Dr Norman: Patient seen and examined at bedside. No acute events overnight. Pt refused CTA overnight. Agrees to go this AM. Pt reports that his left leg is mildly improved. Denies fevers, chills, nausea, vomiting, abdominal pain. Objective - Vital Signs/Intake and Output Vital Signs (last 24 hours): Temp Pulse Resp BP Pulse Ox 97.7 F 73 20 135/88 98 03/18/18 12:00 03/18/18 12:00 03/18/18 12:00 03/18/18 12:00 03/18/18 05:36 Intake and Output: 03/18/18 03/18/18 06:59 18:59 Intake Total 783 Output Total 1300 Balance -517 - Medications Medications: Current Medications Amlodipine Besylate (Norvasc) 5 mg PO DAILY [facility] Last Admin: 03/18/18 09:33 Dose: 5 mg Aspirin (Aspirin Chewable) 81 mg PO DAILY [facility] Last Admin: 03/18/18 09:32 Dose: 81 mg Atorvastatin Calcium (Lipitor) 10 mg PO DIN [facility] Last Admin: 03/17/18 17:31 Dose: 10 mg Gabapentin (Neurontin) 300 mg PO DAILY [facility] PRN Reason: Protocol Last Admin: 03/18/18 09:32 Dose: 300 mg Heparin Sodium/Sodium Chloride (Heparin 95428 Units/250ml 1/2 Normal Saline) 25 ,000 units in 250 mls @ 18.885 mls/hr IV .[id number] PRN; Protocol; 18 UNITS/KG/HR PRN Reason: ADJUST RATE PER PROTOCOL Last Titration: 03/18/18 00:20 Dose: 17 units/kg/hr, 17.836 mls/hr Ceftriaxone Sodium (Rocephin 1 Gram Ivpb) 1 gm in 100 mls @ 100 mls/hr IVPB DAILY [facility] PRN Reason: Protocol Insulin Human Lispro (Humalog Low) 0 units SC ACHS [facility] PRN Reason: Protocol Last Admin: 03/18/18 11:30 Dose: Not Given Metoprolol Tartrate (Lopressor) 50 mg PO BID [facility] Last Admin: 03/18/18 12:53 Dose: Not Given Morphine Sulfate (Morphine) 2 mg IVP Q6H PRN PRN Reason: Pain, moderate (4-7) Last Admin: 03/17/18 19:08 Dose: 2 mg Pantoprazole Sodium (Protonix Ec Tab) 40 mg PO DAILY [facility] Last Admin: 03/18/18 09:32 Dose: 40 mg Tamsulosin HCl (Flomax) 0.4 mg PO DAILY [facility] Last Admin: 03/18/18 09:32 Dose: 0.4 mg - Labs Labs: 03/18/18 06:44 03/18/18 06:44 PT 11.1 SECONDS (9.4-12.5) 03/17/18 07:55 INR 0.97 (0.93-1.08) 03/17/18 07:55 APTT 170.2 Seconds (25.1-36.5) H* 03/18/18 06:44 - Constitutional Appears: Non-toxic, No Acute Distress - Head Exam Head Exam: ATRAUMATIC, NORMOCEPHALIC - Eye Exam Eye Exam: EOMI, PERRL. absent: Conjunctival injection, Nystagmus, Scleral icterus Pupil Exam: NORMAL ACCOMODATION, PERRL. absent: Irregular, Unequal - ENT Exam ENT Exam: Mucous Membranes Moist - Neck Exam Neck Exam: Full ROM - Respiratory Exam Respiratory Exam: Clear to Ausculation Bilateral, NORMAL BREATHING PATTERN. absent: Accessory Muscle Use, Rales, Rhonchi, Wheezes, Stridor - Cardiovascular Exam Cardiovascular Exam: RRR, +S1, +S2, Murmur (+ aortic stenosis systolic murmur) - Extremities Exam Additional comments: + chronic venous stasis changes L>R, discoloration noted, 1-2+ pulses dorsalis pedis and posterior tibialis on left foot. R foot: 2+ dorsalis pedis and post tibialis pulses. Sensation intact. + both lower extremities warm to touch. - Back Exam Back Exam: NORMAL INSPECTION - Neurological Exam Neurological Exam: Alert, Awake, Oriented x3 - Psychiatric Exam Psychiatric exam: Normal Affect, Normal Mood - Skin Skin Exam: Dry, Normal Color, Warm Assessment and Plan - Assessment and Plan (Free Text) Assessment: 72yo male PMHx HTN, DM, BPH, LLE DVT dx 2008 not on anticoag, and obesity, presents with LLE pain/cellulitis: LLE chronic venous stasis changes/cellulitis: -venous doppler LE neg for DVT -CTA neg for PE. aneurysm of ascending aorta 4.4x4.2 cm. prior records unavailable. Outpatient follow up. -Heparin gtt discontinued -Morphine discontinued. -motrin prn pain -rocephin -f/u Echo -trop <0.01x2, 0.02 -Cardio consulted. appreciate recs -podiatry consulted. recommends lotrisone cream. Ascending aortic aneurysm: - CTA shows aneurysm of ascending aorta 4.4x4.2 cm. prior records unavailable. - Cardiology on board, will f.u recs - patient currently asymptomatic - not a smoker Leukocytosis: - likely reactive vs cellulitis - resolved - UA neg for infection - f/u blood cultures x 2 - Rocephin qd for empiric tx of cellulitis of LLE Hx of HTN: -continue home meds -ASA 81mg qd -Norvasc 5mg qd -Metoprolol 50mg qd -Lipitor 10mg qd -f/u lipid panel Hx of DM2: -HgbA1c 7.6 -neurotin 300mg qd -RISS low -Accucheck [place] [facility] Hx of BPH: -PSA 1.6 -flomax 0.4 daily Hx of obesity: -bill sorter consultation GI ppx: protonix 40mg po qd DVT ppx: scds PT: recommends TCU. Discussed with patient, wants to go to rehab. Put in TCU eval. Diet: [place] [facility] Case seen and discussed with Dr Norman. Abby Mcgrath, PGY1 <Breana Norman - Last Filed: 03/18/18 17:49> Objective - Vital Signs/Intake and Output Vital Signs (last 24 hours): Temp Pulse Resp BP Pulse Ox 97.7 F 70 20 130/90 98 03/18/18 12:00 03/18/18 17:06 03/18/18 12:00 03/18/18 17:06 03/18/18 05:36 Intake and Output: 03/18/18 03/18/18 06:59 18:59 Intake Total 783 Output Total 1300 Balance -517 - Medications Medications: Current Medications Amlodipine Besylate (Norvasc) 5 mg PO DAILY [facility] Last Admin: 03/18/18 09:33 Dose: 5 mg Aspirin (Aspirin Chewable) 81 mg PO DAILY [facility] Last Admin: 03/18/18 09:32 Dose: 81 mg Atorvastatin Calcium (Lipitor) 10 mg PO DIN [facility] Last Admin: 03/18/18 17:06 Dose: 10 mg Gabapentin (Neurontin) 300 mg PO DAILY [facility] PRN Reason: Protocol Last Admin: 03/18/18 09:32 Dose: 300 mg Ceftriaxone Sodium (Rocephin 1 Gram Ivpb) 1 gm in 100 mls @ 100 mls/hr IVPB DAILY [facility] PRN Reason: Protocol Last Admin: 03/18/18 13:40 Dose: 100 mls/hr Ibuprofen (Motrin Tab) 400 mg PO Q6H PRN PRN Reason: Pain, moderate (4-7) Insulin Human Lispro (Humalog Low) 0 units SC ACHS [facility] PRN Reason: Protocol Last Admin: 03/18/18 16:33 Dose: Not Given Lactic Acid (Lac-Hydrin 12% Lotion (225 G)) 0 gm EXT BID [facility] Metoprolol Tartrate (Lopressor) 50 mg PO BID [facility] Last Admin: 03/18/18 17:06 Dose: 50 mg Pantoprazole Sodium (Protonix Ec Tab) 40 mg PO DAILY [facility] Last Admin: 03/18/18 09:32 Dose: 40 mg Tamsulosin HCl (Flomax) 0.4 mg PO DAILY [facility] Last Admin: 03/18/18 09:32 Dose: 0.4 mg - Labs Labs: 03/18/18 06:44 03/18/18 06:44 PT 11.1 SECONDS (9.4-12.5) 03/17/18 07:55 INR 0.97 (0.93-1.08) 03/17/18 07:55 APTT 170.2 Seconds (25.1-36.5) H* 03/18/18 06:44 Attending/Attestation - Attestation I have personally seen and examined this patient.: Yes I have fully participated in the care of the patient.: Yes I have reviewed all pertinent clinical information, including history, physical exam and plan: Yes Notes (Text): 03/18/18 17:43 attending note; Patient seen and examined with resident. patient is a 72 year old male with past medical history of hypertension, LLE DVT (2007) and obesity who presents with LLE pain, erythema and swelling. He was found to have leukocytosis, tachycardia and elevated D-dimer. patient was initially started on heparin drip. lower extremity Doppler is negative. Patient has chronic venous stasis. Uses compression stockings at home. CT is negative for PE. aneurysm of ascending aorta 4.4 cm. No previous study for comparison. Continue beta janay. needs close outpatient follow-up. Heparin drip discontinued. Cardiology evaluation appreciated. Echocardiogram showed ejection fraction of 55%. mild lower extremity redness. continue IV Rocephin. podiatry evaluation appreciated. Physical therapy evaluation appreciated. Transferred to TCU. upon discharge the patient will be referred to [facility] clinic.
--- NOTE | 2018-03-18 13:13 | PCM.PAD ---
PAD Screening - Peripheral Artery Disease Assessment When you walk, do you experience aching, cramping or pain in your legs, thighs, or buttocks: Yes When do you feel the pain: After walking 100 yards If you have pain, does the pain subside with rest: Yes Have you ever been diagnosed with Peripheral Vascular Disease or been diagnosed as having poor circulation: No Have you ever had surgery, balloon procedures or stents in your heart, kidneys, belly, legs, or arms: No Do you have any painful sores or ulcers on legs or feet that do not heal: No Are your legs discolored or bluish: Yes PVD Past Medical & Familial Hx - Past Medical History Hx Diabetes Mellitus Type 2: Yes Hx Hypertension: Yes
[2018-03-18] MEDS: cefTRIAXone 1 gm 1 GM/100 ML BAG IVPB SCH (13:40)
[2018-03-18] MEDS ORDERED: Morphine 2 mg/ml ISec IVP PRN (13:50)
--- NOTE | 2018-03-18 14:18 | PN ---
DATE: 03/18/2018 SUBJECTIVE: The patient denies any retrosternal chest pain. PHYSICAL EXAMINATION: VITAL SIGNS: Blood pressure 148/86, heart rate 89, temperature 98.6, respirations 20. HEENT: Head normocephalic. CHEST: Clear. HEART: S1 and S2 are regular and grade III/ ejection systolic murmur over the left sternal border. ABDOMEN: Soft. EXTREMITIES: Have 2+ pitting edema. LABORATORY DATA: EKG reveals sinus tachycardia at rate 124, right bundle-branch block and anteroseptal infarct of indeterminate age. Venous Doppler of the lower extremity, no evidence of DVT. ASSESSMENT: 1. History of deep venous thrombosis in the past, consider chronic renal insufficiency. 2. Aortic stenosis. 3. Hypertension and hyperlipidemia. RECOMMENDATIONS: Continue current aspirin 81 mg once a day, intravenous heparin infusion and therapeutic regimen. Continue Lipitor 10 mg once a day, Lopressor 50 mg once a day, amlodipine 5 mg once a day, Rocephin 1 g intravenously daily. I will follow CT angio of the chest which was performed today and the patient is scheduled for an echocardiogram. Eddie Beckwith MD
--- NOTE | 2018-03-18 16:54 | CARD ---
APPROVED REPORT EXAM: Two-dimensional and M-mode echocardiogram with Doppler and color Doppler. INDICATION /LVFX 2D DIMENSIONS Left Atrium (2D)4.6 (1.6-4.0cm)IVSd1.6 (0.7-1.1cm) LVDd4.2 (3.9-5.9cm)LVOT Diameter2.3 (1.8-2.4cm) PWd1.6 (0.7-1.1cm)LVDs3.0 (2.5-4.0cm) FS (%) 28.4 %LVEF (%)55.2 (>50%) M-Mode DIMENSIONS Aortic Root4.00 (2.2-3.7cm)Aortic Cusp Exc.0.80 (1.5-2.0cm) Aortic Valve AoV Peak Iedkvmkz159.0cm/sAoV VTI83.8cmAO Peak GR.55mmHg LVOT Peak Yzmalejx71.2cm/sLVOT VTI23.10cmAO Mean GR.34mmHg MARLENY (VMAX)1.40ae2WDY (VTI)1.10gq0PJ P 1/2 Zlzq482xn Mitral Valve MV E Poxpmsxu865.0cm/sMV A Eedgsqzj69.9cm/sE/A ratio1.4 TDI Lateral E' Peak V10.30cm/sMedial E' Peak V6.24cm/sE/Lateral E'11.7 E/Medial E'19.2 Pulmonary Valve PV Peak Cwqoonfm54.1cm/sPV Peak Grad.3mmHg Tricuspid Valve TR Peak Jmwcsyvd189pq/sRAP OKQSTOTV90qgEzEU Peak Gr.27mmHg TGKW83kiXo LEFT VENTRICLE The left ventricle is normal size. There is mild concentric left ventricular hypertrophy. The left ventricular function is normal.EF-55% There is normal LV segmental wall motion. Transmitral Doppler flow pattern is Grade II-pseudonormal filling dynamics. No left ventricle thrombus noted on this study. There is no ventricular septal defect visualized. There is no left ventricular aneurysm. There is no mass noted in the left ventricle. RIGHT VENTRICLE The right ventricle is mildly dilated. There is normal right ventricular wall thickness. The right ventricular systolic function is normal. ATRIA The left atrium is mildly dilated. The right atrium is mildly dilated. The interatrial septum is intact with no evidence for an atrial septal defect. AORTIC VALVE The aortic valve is calcified and displays decreased opening. There is mild to moderate aortic regurgitation. There is moderate valvular aortic stenosis. There is no aortic valvular vegetation. MITRAL VALVE The mitral valve is thickened but opens well. Mitral annular calcification is mild to moderate. Mitral regurgitation is mild. There is no mitral valve stenosis. There is no evidence of mitral valve prolapse. TRICUSPID VALVE The tricuspid valve leaflets are thickened , but open well. There is mild tricuspid regurgitation.RVSP-37 mmofhg. There is no tricuspid valve stenosis. There is no tricuspid valve prolapse or vegetation. PULMONIC VALVE The pulmonary valve is normal in structure. There is trace pulmonic valvular regurgitation. There is no pulmonic valvular stenosis. GREAT VESSELS The aortic root is normal in size. The ascending aorta is normal in size. The pulmonary artery is normal. The IVC is normal in size and collapses >50% with inspiration. PERICARDIAL EFFUSION There is no pleural effusion. There is no pericardial effusion. <Conclusion> The left ventricle is normal size. There is mild concentric left ventricular hypertrophy. The left ventricular function is normal.EF-55% There is mild to moderate aortic regurgitation. There is moderate valvular aortic stenosis. Mitral regurgitation is mild. There is mild tricuspid regurgitation.RVSP-37 mmofhg. There is trace pulmonic valvular regurgitation. The IVC is normal in size and collapses >50% with inspiration. There is no pericardial effusion.
[2018-03-18] MEDS: Ammonium Lactate 12% Lotion (225 g) EXT SCH (18:32)
--- NOTE | 2018-03-18 19:59 | US ---
PROCEDURE: Lower extremity CALVIN exam HISTORY: Peripheral vascular disease with pain and claudication. PHYSICIAN(S): Vince Hilario MD. FINDINGS: The resting CALVIN's are normal: right, 1.08and left, 1.08. The brachial systolic pressures are symmetric. The high thigh pressures and waveforms are relatively normal. The calf PVR waveforms augment normally. No significant gradients are noted across the thighs. The ankle and metatarsal waveforms are relatively normal and symmetric. No significant pressure gradients are noted across the lower legs. IMPRESSION: 1. Normal CALVIN and PVR examination at rest.
[2018-03-19 06:58] LABS: BASO # 0.02 K/mm3 (0.0-2.0); BASO % 0.4 % (0.0-3.0); EOS # 0.2 (0.0-0.7); EOS % 4.9 % (1.5-5.0); GRAN # 2.71 (1.4-6.5); GRAN % 60.5 % (50.0-68.0); HEMOGLOBIN 13.1 g/dL (14.0-18.0); MEAN CELL VOLUME 88.9 fl (80.0-105.0); MEAN CORPUSCULAR HEMOGLOBIN 30.2 pg (25.0-35.0); MEAN CORPUSCULAR HGB CONC 33.9 g/dl (31.0-37.0); MEAN PLATELET VOLUME 9.1 fl (7.0-11.0); MONO # 0.5 (0.1-0.6); MONO % 11.2 % (1.0-6.0); RBC 4.34 10^6/uL (3.5-6.1); RED CELL DISTRIBUTION WIDTH 13.1 % (11.5-14.5); WHITE BLOOD COUNT 4.5 10^3/ul (4.5-11.0)
[2018-03-19 07:10] LABS: ALB/GLOB RATIO 1.1 (1.1-1.8); ALBUMIN 3.9 g/dL (3.0-4.8); ALT/SGPT 23 U/L (7-56); AST/SGOT 21 U/L (17-59); BLOOD UREA NITROGEN 16 mg/dL (7-21); CALCIUM 9.3 mg/dL (8.4-10.5); GFR NON-AFRICAN AMERICAN > 60
[2018-03-19] MEDS: Insulin Lispro (humaLOG) LOW Coverage SC SCH ×4 (08:42→21:16)
[2018-03-19] MEDS ORDERED: Clotrimazole 1% Top Soln(10 ml) TOP SCH (10:00)
--- NOTE | 2018-03-19 10:02 | CP.PCM.PN ---
<Abby Mcgrath - Last Filed: 03/19/18 09:56> Subjective - Date & Time of Evaluation Date of Evaluation: 03/19/18 Time of Evaluation: 09:56 - Subjective Subjective: Abby Mcgrath, PGY1, Progress note for Dr Norman: Patient seen and examined at bedside. No acute events overnight. Pt reports left lower extremity pain, denies fevers, chills, epigastric pain, cp, sob, back pain, abdominal pain. Objective - Vital Signs/Intake and Output Vital Signs (last 24 hours): Temp Pulse Resp BP Pulse Ox 97.8 F 82 18 127/75 97 03/19/18 06:00 03/19/18 06:00 03/19/18 06:00 03/19/18 06:00 03/19/18 06:00 Intake and Output: 03/19/18 03/19/18 06:59 18:59 Intake Total 120 Output Total 300 Balance -180 - Medications Medications: Current Medications Amlodipine Besylate (Norvasc) 5 mg PO DAILY [facility] Last Admin: 03/18/18 09:33 Dose: 5 mg Aspirin (Aspirin Chewable) 81 mg PO DAILY [facility] Last Admin: 03/18/18 09:32 Dose: 81 mg Atorvastatin Calcium (Lipitor) 10 mg PO DIN [facility] Last Admin: 03/18/18 17:06 Dose: 10 mg Gabapentin (Neurontin) 300 mg PO DAILY [facility] PRN Reason: Protocol Last Admin: 03/18/18 09:32 Dose: 300 mg Ceftriaxone Sodium (Rocephin 1 Gram Ivpb) 1 gm in 100 mls @ 100 mls/hr IVPB DAILY [facility] PRN Reason: Protocol Last Admin: 03/18/18 13:40 Dose: 100 mls/hr Ibuprofen (Motrin Tab) 400 mg PO Q6H PRN PRN Reason: Pain, moderate (4-7) Insulin Human Lispro (Humalog Low) 0 units SC ACHS [facility] PRN Reason: Protocol Last Admin: 03/19/18 08:42 Dose: 1 units Lactic Acid (Lac-Hydrin 12% Lotion (225 G)) 0 gm EXT BID [facility] Last Admin: 03/18/18 18:32 Dose: 1 applic Metoprolol Tartrate (Lopressor) 50 mg PO BID [facility] Last Admin: 03/18/18 17:06 Dose: 50 mg Pantoprazole Sodium (Protonix Ec Tab) 40 mg PO DAILY [facility] Last Admin: 03/18/18 09:32 Dose: 40 mg Tamsulosin HCl (Flomax) 0.4 mg PO DAILY [facility] Last Admin: 03/18/18 09:32 Dose: 0.4 mg - Labs Labs: 03/19/18 06:30 03/19/18 06:30 PT 11.1 SECONDS (9.4-12.5) 03/17/18 07:55 INR 0.97 (0.93-1.08) 03/17/18 07:55 APTT 170.2 Seconds (25.1-36.5) H* 03/18/18 06:44 - Additional Findings Additional findings: - Constitutional Appears: Non-toxic, No Acute Distress - Head Exam Head Exam: ATRAUMATIC, NORMOCEPHALIC - Eye Exam Eye Exam: EOMI, PERRL. absent: Conjunctival injection, Nystagmus, Scleral icterus Pupil Exam: NORMAL ACCOMODATION, PERRL. absent: Irregular, Unequal - ENT Exam ENT Exam: Mucous Membranes Moist - Neck Exam Neck Exam: Full ROM - Respiratory Exam Respiratory Exam: Clear to Ausculation Bilateral, NORMAL BREATHING PATTERN. absent: Accessory Muscle Use, Rales, Rhonchi, Wheezes, Stridor - Cardiovascular Exam Cardiovascular Exam: RRR, +S1, +S2, Murmur (+ aortic stenosis systolic murmur) - Extremities Exam Additional comments: + chronic venous stasis changes L>R, discoloration noted, 1-2+ pulses dorsalis pedis and posterior tibialis on left foot. R foot: 2+ dorsalis pedis and post tibialis pulses. Sensation intact. + both lower extremities warm to touch. - Back Exam Back Exam: NORMAL INSPECTION - Neurological Exam Neurological Exam: Alert, Awake, Oriented x3 - Psychiatric Exam Psychiatric exam: Normal Affect, Normal Mood - Skin Skin Exam: Dry, Normal Color, Warm Assessment and Plan - Assessment and Plan (Free Text) Assessment: 72yo male PMHx HTN, DM, BPH, LLE DVT dx 2007 not on anticoag, and obesity, presents with LLE pain/cellulitis: LLE chronic venous stasis changes/cellulitis: -venous doppler LE neg for DVT -CTA neg for PE. aneurysm of ascending aorta 4.4x4.2 cm. prior records unavailable. Outpatient follow up. -Arterial LE duplex normal CALVIN and PVR. -motrin prn pain -rocephin -Echo shows EF 55.2%. mild LVH. mild-mod AR. Moderate valvular aortic stenosis. mild MR. -trop <0.01x2, 0.02 -Cardio consulted. appreciate recs. -podiatry consulted. recommends lotrisone cream. Ascending aortic aneurysm: - CTA shows aneurysm of ascending aorta 4.4x4.2 cm. prior records unavailable. 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 Discussed with patient, wants to go to rehab. Put in TCU eval. Diet: HHD with [facility] Case seen and discussed with Dr Norman. Abby Mcgrath, PGY1 <Breana Norman - Last Filed: 03/20/18 14:38> Objective - Vital Signs/Intake and Output Vital Signs (last 24 hours): Temp Pulse Resp BP Pulse Ox 97.5 F L 75 18 104/61 96 03/20/18 06:00 03/20/18 06:00 03/20/18 06:00 03/20/18 06:00 03/20/18 06:00 Intake and Output: 03/20/18 03/20/18 06:59 18:59 Intake Total 360 420 Balance 360 420 - Medications Medications: Current Medications Amlodipine Besylate (Norvasc) 5 mg PO DAILY [facility] Last Admin: 03/20/18 10:50 Dose: 5 mg Aspirin (Aspirin Chewable) 81 mg PO DAILY [facility] Last Admin: 03/20/18 10:50 Dose: 81 mg Atorvastatin Calcium (Lipitor) 10 mg PO DIN [facility] Last Admin: 03/19/18 16:59 Dose: 10 mg Betamethasone/Clotrimazole (Lotrisone) 1 gm TOP BID [facility] Last Admin: 03/20/18 10:51 Dose: 1 applic Enoxaparin Sodium (Lovenox) 40 mg SC DAILY [facility] PRN Reason: Protocol Gabapentin (Neurontin) 300 mg PO DAILY [facility] PRN Reason: Protocol Last Admin: 03/20/18 10:49 Dose: 300 mg Glipizide (Glucotrol) 5 mg PO 0700 [facility] Ceftriaxone Sodium (Rocephin 1 Gram Ivpb) 1 gm in 100 mls @ 100 mls/hr IVPB DAILY [facility] PRN Reason: Protocol Last Admin: 03/20/18 10:49 Dose: 100 mls/hr Ibuprofen (Motrin Tab) 400 mg PO Q6H PRN PRN Reason: Pain, moderate (4-7) Insulin Human Lispro (Humalog Low) 0 units SC ACHS [facility] PRN Reason: Protocol Last Admin: 03/20/18 11:59 Dose: 2 units Lactic Acid (Lac-Hydrin 12% Lotion (225 G)) 0 gm EXT BID [facility] Last Admin: 03/20/18 10:51 Dose: 1 applic Metoprolol Tartrate (Lopressor) 50 mg PO BID [facility] Last Admin: 03/20/18 10:50 Dose: 50 mg Pantoprazole Sodium (Protonix Ec Tab) 40 mg PO DAILY [facility] Last Admin: 03/20/18 10:50 Dose: 40 mg Tamsulosin HCl (Flomax) 0.4 mg PO DAILY [facility] Last Admin: 03/20/18 10:49 Dose: 0.4 mg - Labs Labs: 03/20/18 06:30 03/20/18 06:30 PT 11.1 SECONDS (9.4-12.5) 03/17/18 07:55 INR 0.97 (0.93-1.08) 03/17/18 07:55 APTT 170.2 Seconds (25.1-36.5) H* 03/18/18 06:44 Attending/Attestation - Attestation I have personally seen and examined this patient.: Yes I have fully participated in the care of the patient.: Yes I have reviewed all pertinent clinical information, including history, physical exam and plan: Yes Notes (Text): 03/20/18 14:35 attending note; Patient seen and examined with resident. patient is a 72 year old male with past medical history of hypertension, LLE DVT (2007) and obesity who presents with LLE pain, erythema and swelling. He was found to have leukocytosis, tachycardia and elevated D-dimer. lower extremity Doppler is negative. Patient has chronic venous stasis. Uses compression stockings at home. CT is negative for PE. aneurysm of ascending aorta 4.4 cm. No previous study for comparison. Continue beta janay. needs follow up as outpatient. Cardiology evaluation appreciated. Echocardiogram showed ejection fraction of 55%. Elevated blood sugar; hemoglobin A1c ordered. Dietitian evaluation requested. mild lower extremity redness. continue IV Rocephin. podiatry evaluation appreciated. Physical therapy evaluation appreciated. upon discharge the patient will be referred to [facility] clinic.
[2018-03-19] MEDS: Pantoprazole 40 mg EC Tab PO SCH (10:27)
[2018-03-19] MEDS: cefTRIAXone 1 gm 1 GM/100 ML BAG IVPB SCH (10:27)
[2018-03-19] MEDS: Ammonium Lactate 12% Lotion (225 g) EXT SCH ×2 (10:30→18:02)
[2018-03-19] MEDS: Clotrimazole/Betamethasone Cream(15 gm) TOP SCH ×2 (10:57→18:02)
--- NOTE | 2018-03-19 11:58 | CP.PCM.PN ---
<Yazan Castro - Last Filed: 03/19/18 12:01> Subjective - Date & Time of Evaluation Date of Evaluation: 03/19/18 Time of Evaluation: 11:54 - Subjective Subjective: Podiatry Progressnote: Dr. Crouch/Dr. Quezada 72 year old male seen and evaluated at bedside for LLE pain. Patient is AAOX3 and seen with family member at bedside. Patient denies any acute overnight events. Denies of having recent F/N/V/C/SOB/CP/headache. Denies of any other pedal complains at this time. Objective - Vital Signs/Intake and Output Vital Signs (last 24 hours): Temp Pulse Resp BP Pulse Ox 97.8 F 98 H 18 127/75 97 03/19/18 06:00 03/19/18 10:00 03/19/18 06:00 03/19/18 06:00 03/19/18 06:00 Intake and Output: 03/19/18 03/19/18 06:59 18:59 Intake Total 120 Output Total 300 Balance -180 - Medications Medications: Current Medications Amlodipine Besylate (Norvasc) 5 mg PO DAILY [facility] Last Admin: 03/19/18 10:27 Dose: 5 mg Aspirin (Aspirin Chewable) 81 mg PO DAILY [facility] Last Admin: 03/19/18 10:27 Dose: 81 mg Atorvastatin Calcium (Lipitor) 10 mg PO DIN [facility] Last Admin: 03/18/18 17:06 Dose: 10 mg Betamethasone/Clotrimazole (Lotrisone) 1 gm TOP BID [facility] Last Admin: 03/19/18 10:57 Dose: 1 applic Gabapentin (Neurontin) 300 mg PO DAILY [facility] PRN Reason: Protocol Last Admin: 03/19/18 10:27 Dose: 300 mg Ceftriaxone Sodium (Rocephin 1 Gram Ivpb) 1 gm in 100 mls @ 100 mls/hr IVPB DAILY [facility] PRN Reason: Protocol Last Admin: 03/19/18 10:27 Dose: 100 mls/hr Ibuprofen (Motrin Tab) 400 mg PO Q6H PRN PRN Reason: Pain, moderate (4-7) Insulin Human Lispro (Humalog Low) 0 units SC ACHS [facility] PRN Reason: Protocol Last Admin: 03/19/18 11:39 Dose: 1 units Lactic Acid (Lac-Hydrin 12% Lotion (225 G)) 0 gm EXT BID [facility] Last Admin: 03/19/18 10:30 Dose: 1 applic Metoprolol Tartrate (Lopressor) 50 mg PO BID [facility] Last Admin: 03/19/18 10:28 Dose: 50 mg Pantoprazole Sodium (Protonix Ec Tab) 40 mg PO DAILY [facility] Last Admin: 03/19/18 10:27 Dose: 40 mg Tamsulosin HCl (Flomax) 0.4 mg PO DAILY [facility] Last Admin: 03/19/18 10:27 Dose: 0.4 mg - Labs Labs: 03/19/18 06:30 03/19/18 06:30 PT 11.1 SECONDS (9.4-12.5) 03/17/18 07:55 INR 0.97 (0.93-1.08) 03/17/18 07:55 APTT 170.2 Seconds (25.1-36.5) H* 03/18/18 06:44 - Constitutional Appears: Well, Non-toxic, No Acute Distress - Head Exam Head Exam: ATRAUMATIC, NORMOCEPHALIC - Extremities Exam Additional comments: Bilateral LE exam: VASC: DP/PT pulses are faintly palpable, Cap refill time: < 3 sec to all digits , Temp gradient: warm to warm from proximal to distal, 2+ pitting edema noted on the distal medial leg b/l (L>R) DERM: Hemosidrin deposits demonstrating hyperpigmentation noted on the mid leg extending distally bilaterally, no open lesions, no clinical suspicion of active infection NEURO: Protective sensation mildly diminished ORTHO: Clarke negative, homman negative, no pain at the ankle joint during AROM or PROM - Neurological Exam Neurological Exam: Alert, Awake, Oriented x3 - Psychiatric Exam Psychiatric exam: Normal Affect, Normal Mood Assessment and Plan - Assessment and Plan (Free Text) Assessment: 72 year old male evaluated for possible DVT manifestation vs. cellulitis Plan: Patient seen and evaluated at bedside Plan discussed with attending, Dr. Crouch Labs, vitals and charts reviewed - afebrile, WBC @ 4.5 LE US- No evidence of DVT in LLE Patient instructed to continue applying Lortisone cream and apply compression stockings Educated patient to keep the socks on daily and educated to elevate his legs when possible Podiatry will continue to follow patient while in-house <Stevan Crouch - Last Filed: 03/20/18 09:01> Objective - Vital Signs/Intake and Output Vital Signs (last 24 hours): Temp Pulse Resp BP Pulse Ox 97.5 F L 75 18 104/61 96 03/20/18 06:00 03/20/18 06:00 03/20/18 06:00 03/20/18 06:00 03/20/18 06:00 Intake and Output: 03/20/18 03/20/18 06:59 18:59 Intake Total 360 0 Balance 360 0 - Medications Medications: Current Medications Amlodipine Besylate (Norvasc) 5 mg PO DAILY [facility] Last Admin: 03/19/18 10:27 Dose: 5 mg Aspirin (Aspirin Chewable) 81 mg PO DAILY [facility] Last Admin: 03/19/18 10:27 Dose: 81 mg Atorvastatin Calcium (Lipitor) 10 mg PO DIN [facility] Last Admin: 03/19/18 16:59 Dose: 10 mg Betamethasone/Clotrimazole (Lotrisone) 1 gm TOP BID [facility] Last Admin: 03/19/18 18:02 Dose: 1 applic Gabapentin (Neurontin) 300 mg PO DAILY [facility] PRN Reason: Protocol Last Admin: 03/19/18 10:27 Dose: 300 mg Ceftriaxone Sodium (Rocephin 1 Gram Ivpb) 1 gm in 100 mls @ 100 mls/hr IVPB DAILY [facility] PRN Reason: Protocol Last Admin: 03/19/18 10:27 Dose: 100 mls/hr Ibuprofen (Motrin Tab) 400 mg PO Q6H PRN PRN Reason: Pain, moderate (4-7) Insulin Human Lispro (Humalog Low) 0 units SC ACHS [facility] PRN Reason: Protocol Last Admin: 03/19/18 21:16 Dose: Not Given Lactic Acid (Lac-Hydrin 12% Lotion (225 G)) 0 gm EXT BID [facility] Last Admin: 03/19/18 18:02 Dose: 1 applic Metoprolol Tartrate (Lopressor) 50 mg PO BID [facility] Last Admin: 03/19/18 17:00 Dose: 50 mg Pantoprazole Sodium (Protonix Ec Tab) 40 mg PO DAILY [facility] Last Admin: 03/19/18 10:27 Dose: 40 mg Tamsulosin HCl (Flomax) 0.4 mg PO DAILY [facility] Last Admin: 03/19/18 10:27 Dose: 0.4 mg - Labs Labs: 03/20/18 06:30 03/20/18 06:30 PT 11.1 SECONDS (9.4-12.5) 03/17/18 07:55 INR 0.97 (0.93-1.08) 03/17/18 07:55 APTT 170.2 Seconds (25.1-36.5) H* 03/18/18 06:44 Attending/Attestation - Attestation I have personally seen and examined this patient.: Yes I have fully participated in the care of the patient.: Yes I have reviewed all pertinent clinical information, including history, physical exam and plan: Yes
--- NOTE | 2018-03-19 17:02 | PN ---
DATE: 03/19/2018 SUBJECTIVE: The patient denies any chest pain, dizziness and no prior history of syncope. No leg pain. PHYSICAL EXAMINATION: VITAL SIGNS: Blood pressure heart rate 81, temperature 97.8, respirations 18. HEENT: Normocephalic. CHEST: Clear. HEART: S1, S2 regular. Grade 3/6 ejection systolic murmur over left sternal border. ABDOMEN: Soft. EXTREMITIES: 1+ left leg edema. DIAGNOSTIC DATA: Echocardiographic study revealed mild concentric LVH with normal systolic function, rjue-th-gyathany aortic insufficiency, moderate valvular aortic stenosis and mild pulmonary hypertension. Chest CT angio, no CT evidence of acute pulmonary embolus. Aneurysm of the ascending aorta measuring 4.4 x 4.2 cm. ASSESSMENT: 1. Moderate aortic stenosis. 2. Hypertension. 3. Hyperlipidemia. 4. A 4.4 x 4.2 cm ascending aortic aneurysm. 5. History of deep venous thrombosis in the past. RECOMMENDATIONS: Continue current Lipitor 10 mg once a day, Lopressor 20 mg a day, Norvasc 5 mg once a day, IV Rocephin 1 g daily. The patient was advised annual evaluation by his primary physician for both echocardiographic study and chest CT scan. Patient should be given copies of both reports done yesterday on hospital to present for his primary physician in [place] where he lives. At this time no urgent need for an open heart surgery regarding the aortic stenosis and the ascending aortic aneurysm. Eddie Beckwith MD
[2018-03-20 06:58] LABS: BASO # 0.02 K/mm3 (0.0-2.0); BASO % 0.4 % (0.0-3.0); EOS # 0.3 (0.0-0.7); EOS % 6.7 % (1.5-5.0); GRAN # 2.13 (1.4-6.5); GRAN % 44.6 % (50.0-68.0); HEMOGLOBIN 12.3 g/dL (14.0-18.0); LYMPH # 1.8 (1.2-3.4); MEAN CELL VOLUME 88.3 fl (80.0-105.0); MEAN CORPUSCULAR HEMOGLOBIN 29.9 pg (25.0-35.0); MEAN CORPUSCULAR HGB CONC 33.9 g/dl (31.0-37.0); MEAN PLATELET VOLUME 9.5 fl (7.0-11.0); MONO # 0.5 (0.1-0.6); MONO % 11.3 % (1.0-6.0); RBC 4.11 10^6/uL (3.5-6.1); RED CELL DISTRIBUTION WIDTH 12.9 % (11.5-14.5); WHITE BLOOD COUNT 4.8 10^3/ul (4.5-11.0)
[2018-03-20 07:11] LABS: ALBUMIN 3.6 g/dL (3.0-4.8); ALT/SGPT 20 U/L (7-56); AST/SGOT 22 U/L (17-59); BLOOD UREA NITROGEN 18 mg/dL (7-21); CALCIUM 9.2 mg/dL (8.4-10.5); GFR NON-AFRICAN AMERICAN > 60
[2018-03-20 07:45] VITALS: BP 104/61; PULSE 75; RESP 18; TEMP 97.5; O2SAT 96
[2018-03-20] MEDS: Insulin Lispro (humaLOG) LOW Coverage SC SCH ×2 (08:00→11:59)
--- NOTE | 2018-03-20 09:33 | CP.PCM.PN ---
Subjective - Date & Time of Evaluation Date of Evaluation: 03/20/18 Time of Evaluation: 09:31 - Subjective Subjective: Abby Mcgrath, PGY1, Progress note for Dr Norman: Patient seen and examined at bedside. No acute events overnight. Objective - Vital Signs/Intake and Output Vital Signs (last 24 hours): Temp Pulse Resp BP Pulse Ox 97.5 F L 75 18 104/61 96 03/20/18 06:00 03/20/18 06:00 03/20/18 06:00 03/20/18 06:00 03/20/18 06:00 Intake and Output: 03/20/18 03/20/18 06:59 18:59 Intake Total 360 0 Balance 360 0 - Medications Medications: Current Medications Amlodipine Besylate (Norvasc) 5 mg PO DAILY [facility] Last Admin: 03/19/18 10:27 Dose: 5 mg Aspirin (Aspirin Chewable) 81 mg PO DAILY [facility] Last Admin: 03/19/18 10:27 Dose: 81 mg Atorvastatin Calcium (Lipitor) 10 mg PO DIN [facility] Last Admin: 03/19/18 16:59 Dose: 10 mg Betamethasone/Clotrimazole (Lotrisone) 1 gm TOP BID [facility] Last Admin: 03/19/18 18:02 Dose: 1 applic Gabapentin (Neurontin) 300 mg PO DAILY [facility] PRN Reason: Protocol Last Admin: 03/19/18 10:27 Dose: 300 mg Ceftriaxone Sodium (Rocephin 1 Gram Ivpb) 1 gm in 100 mls @ 100 mls/hr IVPB DAILY [facility] PRN Reason: Protocol Last Admin: 03/19/18 10:27 Dose: 100 mls/hr Ibuprofen (Motrin Tab) 400 mg PO Q6H PRN PRN Reason: Pain, moderate (4-7) Insulin Human Lispro (Humalog Low) 0 units SC ACHS [facility] PRN Reason: Protocol Last Admin: 03/19/18 21:16 Dose: Not Given Lactic Acid (Lac-Hydrin 12% Lotion (225 G)) 0 gm EXT BID [facility] Last Admin: 03/19/18 18:02 Dose: 1 applic Metoprolol Tartrate (Lopressor) 50 mg PO BID [facility] Last Admin: 03/19/18 17:00 Dose: 50 mg Pantoprazole Sodium (Protonix Ec Tab) 40 mg PO DAILY [facility] Last Admin: 03/19/18 10:27 Dose: 40 mg Tamsulosin HCl (Flomax) 0.4 mg PO DAILY [facility] Last Admin: 03/19/18 10:27 Dose: 0.4 mg - Labs Labs: 03/20/18 06:30 03/20/18 06:30 PT 11.1 SECONDS (9.4-12.5) 03/17/18 07:55 INR 0.97 (0.93-1.08) 03/17/18 07:55 APTT 170.2 Seconds (25.1-36.5) H* 03/18/18 06:44
--- NOTE | 2018-03-20 10:12 | CP.PCM.PN ---
<Yazan Castro - Last Filed: 03/20/18 10:08> Subjective - Date & Time of Evaluation Date of Evaluation: 03/20/18 Time of Evaluation: 10:08 - Subjective Subjective: Podiatry Progressnote: Dr. Crouch/Dr. Quezada 72 year old male seen and evaluated at bedside for LLE pain. Patient is AAOX3 and seen with family member at bedside. Patient denies any acute overnight events. Denies of any pain today. Denies of having recent F/N/V/C/SOB/CP/ headache. Denies of any other pedal complains at this time. Objective - Vital Signs/Intake and Output Vital Signs (last 24 hours): Temp Pulse Resp BP Pulse Ox 97.5 F L 75 18 104/61 96 03/20/18 06:00 03/20/18 06:00 03/20/18 06:00 03/20/18 06:00 03/20/18 06:00 Intake and Output: 03/20/18 03/20/18 06:59 18:59 Intake Total 360 0 Balance 360 0 - Medications Medications: Current Medications Amlodipine Besylate (Norvasc) 5 mg PO DAILY [facility] Last Admin: 03/19/18 10:27 Dose: 5 mg Aspirin (Aspirin Chewable) 81 mg PO DAILY [facility] Last Admin: 03/19/18 10:27 Dose: 81 mg Atorvastatin Calcium (Lipitor) 10 mg PO DIN [facility] Last Admin: 03/19/18 16:59 Dose: 10 mg Betamethasone/Clotrimazole (Lotrisone) 1 gm TOP BID [facility] Last Admin: 03/19/18 18:02 Dose: 1 applic Gabapentin (Neurontin) 300 mg PO DAILY [facility] PRN Reason: Protocol Last Admin: 03/19/18 10:27 Dose: 300 mg Ceftriaxone Sodium (Rocephin 1 Gram Ivpb) 1 gm in 100 mls @ 100 mls/hr IVPB DAILY [facility] PRN Reason: Protocol Last Admin: 03/19/18 10:27 Dose: 100 mls/hr Ibuprofen (Motrin Tab) 400 mg PO Q6H PRN PRN Reason: Pain, moderate (4-7) Insulin Human Lispro (Humalog Low) 0 units SC ACHS [facility] PRN Reason: Protocol Last Admin: 03/19/18 21:16 Dose: Not Given Lactic Acid (Lac-Hydrin 12% Lotion (225 G)) 0 gm EXT BID [facility] Last Admin: 03/19/18 18:02 Dose: 1 applic Metoprolol Tartrate (Lopressor) 50 mg PO BID [facility] Last Admin: 03/19/18 17:00 Dose: 50 mg Pantoprazole Sodium (Protonix Ec Tab) 40 mg PO DAILY [facility] Last Admin: 03/19/18 10:27 Dose: 40 mg Tamsulosin HCl (Flomax) 0.4 mg PO DAILY [facility] Last Admin: 03/19/18 10:27 Dose: 0.4 mg - Labs Labs: 03/20/18 06:30 03/20/18 06:30 PT 11.1 SECONDS (9.4-12.5) 03/17/18 07:55 INR 0.97 (0.93-1.08) 03/17/18 07:55 APTT 170.2 Seconds (25.1-36.5) H* 03/18/18 06:44 - Constitutional Appears: Well, Non-toxic, No Acute Distress - Extremities Exam Additional comments: Bilateral LE exam: VASC: DP/PT pulses are faintly palpable, Cap refill time: < 3 sec to all digits , Temp gradient: warm to warm from proximal to distal, 2+ pitting edema noted on the distal medial leg b/l (L>R) DERM: Hemosidrin deposits demonstrating hyperpigmentation noted on the mid leg extending distally bilaterally, no open lesions, no clinical suspicion of active infection NEURO: Protective sensation mildly diminished ORTHO: Clarke negative, homman negative, no pain at the ankle joint during AROM or PROM - Neurological Exam Neurological Exam: Alert, Awake, Oriented x3 - Psychiatric Exam Psychiatric exam: Normal Affect, Normal Mood Assessment and Plan - Assessment and Plan (Free Text) Assessment: 72 year old male with venous stasis evaluated for possible DVT manifestation vs. cellulitis Plan: Patient seen and evaluated at bedside with attending, Dr. Crouch Labs, vitals and charts reviewed - afebrile, WBC @ 4.8 LE US- No evidence of DVT in LLE Patient instructed to continue applying Lortisone cream and apply compression stockings Educated patient to keep the socks on daily and educated to elevate his legs when possible Podiatry will continue to follow patient while in-house <Stevan Crouch - Last Filed: 03/20/18 11:31> Objective - Vital Signs/Intake and Output Vital Signs (last 24 hours): Temp Pulse Resp BP Pulse Ox 97.5 F L 75 18 104/61 96 03/20/18 06:00 03/20/18 06:00 03/20/18 06:00 03/20/18 06:00 03/20/18 06:00 Intake and Output: 03/20/18 03/20/18 06:59 18:59 Intake Total 360 0 Balance 360 0 - Medications Medications: Current Medications Amlodipine Besylate (Norvasc) 5 mg PO DAILY [facility] Last Admin: 03/20/18 10:50 Dose: 5 mg Aspirin (Aspirin Chewable) 81 mg PO DAILY [facility] Last Admin: 03/20/18 10:50 Dose: 81 mg Atorvastatin Calcium (Lipitor) 10 mg PO DIN [facility] Last Admin: 03/19/18 16:59 Dose: 10 mg Betamethasone/Clotrimazole (Lotrisone) 1 gm TOP BID [facility] Last Admin: 03/20/18 10:51 Dose: 1 applic Gabapentin (Neurontin) 300 mg PO DAILY [facility] PRN Reason: Protocol Last Admin: 03/20/18 10:49 Dose: 300 mg Ceftriaxone Sodium (Rocephin 1 Gram Ivpb) 1 gm in 100 mls @ 100 mls/hr IVPB DAILY [facility] PRN Reason: Protocol Last Admin: 03/20/18 10:49 Dose: 100 mls/hr Ibuprofen (Motrin Tab) 400 mg PO Q6H PRN PRN Reason: Pain, moderate (4-7) Insulin Human Lispro (Humalog Low) 0 units SC ACHS [facility] PRN Reason: Protocol Last Admin: 03/20/18 08:00 Dose: Not Given Lactic Acid (Lac-Hydrin 12% Lotion (225 G)) 0 gm EXT BID [facility] Last Admin: 03/20/18 10:51 Dose: 1 applic Metoprolol Tartrate (Lopressor) 50 mg PO BID [facility] Last Admin: 03/20/18 10:50 Dose: 50 mg Pantoprazole Sodium (Protonix Ec Tab) 40 mg PO DAILY [facility] Last Admin: 03/20/18 10:50 Dose: 40 mg Tamsulosin HCl (Flomax) 0.4 mg PO DAILY [facility] Last Admin: 03/20/18 10:49 Dose: 0.4 mg - Labs Labs: 03/20/18 06:30 03/20/18 06:30 PT 11.1 SECONDS (9.4-12.5) 03/17/18 07:55 INR 0.97 (0.93-1.08) 03/17/18 07:55 APTT 170.2 Seconds (25.1-36.5) H* 03/18/18 06:44 Attending/Attestation - Attestation I have personally seen and examined this patient.: Yes I have fully participated in the care of the patient.: Yes I have reviewed all pertinent clinical information, including history, physical exam and plan: Yes
[2018-03-20] MEDS: cefTRIAXone 1 gm 1 GM/100 ML BAG IVPB SCH (10:49)
[2018-03-20] MEDS: Pantoprazole 40 mg EC Tab PO SCH (10:50)
[2018-03-20] MEDS: Ammonium Lactate 12% Lotion (225 g) EXT SCH (10:51)
[2018-03-20] MEDS: Clotrimazole/Betamethasone Cream(15 gm) TOP SCH (10:51)
[2018-03-20] MEDS ORDERED: Enoxaparin 40 mg Syringe SC SCH (11:45)
--- NOTE | 2018-03-20 11:47 | CP.PCM.DIS ---
<Abby Mcgrath - Last Filed: 03/20/18 13:08> Provider - Provider Date of Admission: 03/17/18 11:39 Attending physician: Breana Norman MD Consults: [facility] [place] Time Spent in preparation of Discharge (in minutes): 60 Diagnosis - Discharge Diagnosis (1) Chronic venous insufficiency Status: Acute (2) Aortic aneurysm Status: Acute (3) Cellulitis Status: Acute Hospital Course - Lab Results Lab Results: Micro Results 03/17/18 14:00 Blood-Venous Blood Culture - Preliminary NO GROWTH AFTER 48 HOURS 03/17/18 13:30 Blood-Venous Blood Culture - Preliminary NO GROWTH AFTER 48 HOURS Most Recent Lab Values WBC 4.8 10^3/ul (4.5-11.0) 03/20/18 06:30 RBC 4.11 10^6/uL (3.5-6.1) 03/20/18 06:30 Hgb 12.3 g/dL (14.0-18.0) L 03/20/18 06:30 Hct 36.3 % (42.0-52.0) L 03/20/18 06:30 MCV 88.3 fl (80.0-105.0) 03/20/18 06:30 MCH 29.9 pg (25.0-35.0) 03/20/18 06:30 MCHC 33.9 g/dl (31.0-37.0) 03/20/18 06:30 RDW 12.9 % (11.5-14.5) 03/20/18 06:30 Plt Count 196 10^3/uL (120.0-450.0) 03/20/18 06:30 MPV 9.5 fl (7.0-11.0) 03/20/18 06:30 Gran % 44.6 % (50.0-68.0) L 03/20/18 06:30 Lymph % (Auto) 37.0 % (22.0-35.0) H 03/20/18 06:30 [place] % (Auto) 11.3 % (1.0-6.0) H 03/20/18 06:30 Eos % (Auto) 6.7 % (1.5-5.0) H 03/20/18 06:30 Baso % (Auto) 0.4 % (0.0-3.0) 03/20/18 06:30 Gran # 2.13 (1.4-6.5) 03/20/18 06:30 Lymph # (Auto) 1.8 (1.2-3.4) 03/20/18 06:30 [place] # (Auto) 0.5 (0.1-0.6) 03/20/18 06:30 Eos # (Auto) 0.3 (0.0-0.7) 03/20/18 06:30 Baso # (Auto) 0.02 K/mm3 (0.0-2.0) 03/20/18 06:30 Neutrophils % (Manual) 77 % (50.0-70.0) H 03/17/18 07:55 Band Neutrophils % 9 % (0-2) H 03/17/18 07:55 Lymphocytes % (Manual) 6 % (22.0-35.0) L 03/17/18 07:55 Monocytes % (Manual) 6 % (1.0-6.0) 03/17/18 07:55 Eosinophils % (Manual) 2 % (0.0-3.0) 03/17/18 07:55 Platelet Evaluation Normal (NORMAL) 03/17/18 07:55 PT 11.1 SECONDS (9.4-12.5) 03/17/18 07:55 INR 0.97 (0.93-1.08) 03/17/18 07:55 APTT 170.2 Seconds (25.1-36.5) H* 03/18/18 06:44 D-Dimer, Quantitative 2720 ng/mL (0-243) H 03/17/18 07:55 Sodium 142 mmol/L (132-148) 03/20/18 06:30 Potassium 4.1 mmol/L (3.6-5.0) 03/20/18 06:30 Chloride 103 mmol/L (98-107) 03/20/18 06:30 Carbon Dioxide 29 mmol/L (21-33) 03/20/18 06:30 Anion Gap 14 (10-20) 03/20/18 06:30 BUN 18 mg/dL (7-21) 03/20/18 06:30 Creatinine 0.8 mg/dl (0.8-1.5) 03/20/18 06:30 Est GFR ( Amer) > 60 03/20/18 06:30 Est GFR (Non-Af Amer) > 60 03/20/18 06:30 POC Glucose (mg/dL) 202 mg/dL (65-110) H 03/20/18 10:54 Random Glucose 163 mg/dL (70-110) H 03/20/18 06:30 Hemoglobin A1c 7.6 % (4.2-6.5) H 03/18/18 06:44 Calcium 9.2 mg/dL (8.4-10.5) 03/20/18 06:30 Phosphorus 3.6 mg/dL (2.5-4.5) 03/18/18 06:44 Magnesium 1.7 mg/dL (1.7-2.2) 03/18/18 06:44 Total Bilirubin 0.5 mg/dL (0.2-1.3) 03/20/18 06:30 AST 22 U/L (17-59) 03/20/18 06:30 ALT 20 U/L (7-56) 03/20/18 06:30 Alkaline Phosphatase 65 U/L (38-126) 03/20/18 06:30 Lactate Dehydrogenase 467 U/L (333-699) 03/17/18 07:55 Total Creatine Kinase 46 U/L (35-230) 03/17/18 07:55 Troponin I 0.02 ng/mL D 03/17/18 21:50 NT-Pro-B Natriuret Pep 205 pg/mL (0-450) 03/17/18 07:55 Total Protein 7.2 g/dL (5.8-8.3) 03/20/18 06:30 Albumin 3.6 g/dL (3.0-4.8) 03/20/18 06:30 Globulin 3.6 gm/dL 03/20/18 06:30 Albumin/Globulin Ratio 1.0 (1.1-1.8) L 03/20/18 06:30 Triglycerides 61 mg/dL (35-160) 03/18/18 06:44 Cholesterol 123 mg/dL (130-200) L 03/18/18 06:44 LDL Cholesterol Direct 50 mg/dL (0-129) 03/18/18 06:44 HDL Cholesterol 53 mg/dL (29-60) 03/18/18 06:44 Prostate Specific Ag 1.6 ng/mL (0.00-2.5) 03/18/18 06:44 TSH 3rd Generation 0.84 mIU/mL (0.46-4.68) 03/18/18 06:44 Urine Color Yellow (YELLOW) 03/18/18 03:30 Urine Appearance Clear (CLEAR) 03/18/18 03:30 Urine pH 7.0 (4.7-8.0) 03/18/18 03:30 Ur Specific [place] <= 1.005 (1.005-1.035) 03/18/18 03:30 Urine Protein Negative mg/dL (<30 mg/dL) 03/18/18 03:30 Urine Glucose (UA) Negative mg/dL (NEGATIVE) 03/18/18 03:30 Urine Ketones Negative mg/dL (NEGATIVE) 03/18/18 03:30 Urine Blood Negative (NEGATIVE) 03/18/18 03:30 Urine Nitrate Negative (NEGATIVE) 03/18/18 03:30 Urine Bilirubin Negative (NEGATIVE) 03/18/18 03:30 Urine Urobilinogen 0.2 E.U./dL (<1 E.U./dL) 03/18/18 03:30 Ur Leukocyte Esterase Negative Dora/uL (NEGATIVE) 03/18/18 03:30 Urine RBC 0 - 2 /hpf (0-2) 03/17/18 12:29 Urine WBC 0 - 2 /hpf (0-6) 03/17/18 12:29 Ur Epithelial Cells None /hpf (0-5) 03/17/18 12:29 Urine Bacteria Occ (NEG) 03/17/18 12:29 - Hospital Course Hospital Course: 72 yo male PMHx HTN, DM, BPH, LLE DVT dx 2007 not on anticoag, and obesity presents with LLE pain for 1 night and chronic LLE swelling. Patient reports he woke up around 3am on the morning of admission with 10/10 LLE pain which was sharp and throbbing in nature. Patient was trying to ambulate to the bathroom but was having difficulty doing so secondary to the pain. Venous doppler LE negative for DVT. CTA negative for PE, found to have 4.4 x4.2cm asceding aneurysm. Arterial duplex shows normal CALVIN and PVR. Given rocephin for pain. Echocardiogram shows EF 55.2%. mild LVH. mild-mod AR. Moderate valvular aortic stenosis. mild MR. Cardiology consulted, recommended annual CTA and echocardiogram. Pt also complained or urinary incontinence, hesitancy, BPH symptoms. UA negative on admission. Urology consulted, as per patient's requent. Physical therapy recommended TCU, pt agrees and to resume rehab at TCU. Case seen and discussed with Dr Norman. Abby Mcgrath, PGY1 Discharge Exam - Additional Findings Additional findings: - Constitutional Appears: Non-toxic, No Acute Distress - Head Exam Head Exam: ATRAUMATIC, NORMOCEPHALIC - Eye Exam Eye Exam: EOMI, PERRL. absent: Conjunctival injection, Nystagmus, Scleral icterus Pupil Exam: NORMAL ACCOMODATION, PERRL. absent: Irregular, Unequal - ENT Exam ENT Exam: Mucous Membranes Moist - Neck Exam Neck Exam: Full ROM - Respiratory Exam Respiratory Exam: Clear to Ausculation Bilateral, NORMAL BREATHING PATTERN. absent: Accessory Muscle Use, Rales, Rhonchi, Wheezes, Stridor - Cardiovascular Exam Cardiovascular Exam: RRR, +S1, +S2, Murmur (+ aortic stenosis systolic murmur) - Extremities Exam Additional comments: + chronic venous stasis changes L>R, discoloration noted, 2+ pulses dorsalis pedis and posterior tibialis on left foot. R foot: 2+ dorsalis pedis and post tibialis pulses. Sensation intact. + both lower extremities warm to touch. - Back Exam Back Exam: NORMAL INSPECTION - Neurological Exam Neurological Exam: Alert, Awake, Oriented x3 - Psychiatric Exam Psychiatric exam: Normal Affect, Normal Mood - Skin Skin Exam: Dry, Normal Color, Warm Discharge Plan - Follow Up Plan Condition: FAIR Disposition: REHAB FACILITY/REHAB UNIT Instructions: Tachycardia, Cellulitis (Skin Infection), Adult (DC) Additional Instructions: - Please resume medications on TCU as they were on inpatient floor. - Resume all orders. For consultations services, please consult Urology ONLY. <Breana Norman - Last Filed: 03/20/18 14:40> Provider - Provider Date of Admission: 03/17/18 11:39 Attending physician: Breana Norman MD Hospital Course - Lab Results Lab Results: Micro Results 03/17/18 14:00 Blood-Venous Blood Culture - Preliminary NO GROWTH AFTER 3 DAYS 03/17/18 13:30 Blood-Venous Blood Culture - Preliminary NO GROWTH AFTER 3 DAYS Most Recent Lab Values WBC 4.8 10^3/ul (4.5-11.0) 03/20/18 06:30 RBC 4.11 10^6/uL (3.5-6.1) 03/20/18 06:30 Hgb 12.3 g/dL (14.0-18.0) L 03/20/18 06:30 Hct 36.3 % (42.0-52.0) L 03/20/18 06:30 MCV 88.3 fl (80.0-105.0) 03/20/18 06:30 MCH 29.9 pg (25.0-35.0) 03/20/18 06:30 MCHC 33.9 g/dl (31.0-37.0) 03/20/18 06:30 RDW 12.9 % (11.5-14.5) 03/20/18 06:30 Plt Count 196 10^3/uL (120.0-450.0) 03/20/18 06:30 MPV 9.5 fl (7.0-11.0) 03/20/18 06:30 Gran % 44.6 % (50.0-68.0) L 03/20/18 06:30 Lymph % (Auto) 37.0 % (22.0-35.0) H 03/20/18 06:30 [place] % (Auto) 11.3 % (1.0-6.0) H 03/20/18 06:30 Eos % (Auto) 6.7 % (1.5-5.0) H 03/20/18 06:30 Baso % (Auto) 0.4 % (0.0-3.0) 03/20/18 06:30 Gran # 2.13 (1.4-6.5) 03/20/18 06:30 Lymph # (Auto) 1.8 (1.2-3.4) 03/20/18 06:30 [place] # (Auto) 0.5 (0.1-0.6) 03/20/18 06:30 Eos # (Auto) 0.3 (0.0-0.7) 03/20/18 06:30 Baso # (Auto) 0.02 K/mm3 (0.0-2.0) 03/20/18 06:30 Neutrophils % (Manual) 77 % (50.0-70.0) H 03/17/18 07:55 Band Neutrophils % 9 % (0-2) H 03/17/18 07:55 Lymphocytes % (Manual) 6 % (22.0-35.0) L 03/17/18 07:55 Monocytes % (Manual) 6 % (1.0-6.0) 03/17/18 07:55 Eosinophils % (Manual) 2 % (0.0-3.0) 03/17/18 07:55 Platelet Evaluation Normal (NORMAL) 03/17/18 07:55 PT 11.1 SECONDS (9.4-12.5) 03/17/18 07:55 INR 0.97 (0.93-1.08) 03/17/18 07:55 APTT 170.2 Seconds (25.1-36.5) H* 03/18/18 06:44 D-Dimer, Quantitative 2720 ng/mL (0-243) H 03/17/18 07:55 Sodium 142 mmol/L (132-148) 03/20/18 06:30 Potassium 4.1 mmol/L (3.6-5.0) 03/20/18 06:30 Chloride 103 mmol/L (98-107) 03/20/18 06:30 Carbon Dioxide 29 mmol/L (21-33) 03/20/18 06:30 Anion Gap 14 (10-20) 03/20/18 06:30 BUN 18 mg/dL (7-21) 03/20/18 06:30 Creatinine 0.8 mg/dl (0.8-1.5) 03/20/18 06:30 Est GFR ( Amer) > 60 03/20/18 06:30 Est GFR (Non-Af Amer) > 60 03/20/18 06:30 POC Glucose (mg/dL) 202 mg/dL (65-110) H 03/20/18 10:54 Random Glucose 163 mg/dL (70-110) H 03/20/18 06:30 Hemoglobin A1c 7.6 % (4.2-6.5) H 03/18/18 06:44 Calcium 9.2 mg/dL (8.4-10.5) 03/20/18 06:30 Phosphorus 3.6 mg/dL (2.5-4.5) 03/18/18 06:44 Magnesium 1.7 mg/dL (1.7-2.2) 03/18/18 06:44 Total Bilirubin 0.5 mg/dL (0.2-1.3) 03/20/18 06:30 AST 22 U/L (17-59) 03/20/18 06:30 ALT 20 U/L (7-56) 03/20/18 06:30 Alkaline Phosphatase 65 U/L (38-126) 03/20/18 06:30 Lactate Dehydrogenase 467 U/L (333-699) 03/17/18 07:55 Total Creatine Kinase 46 U/L (35-230) 03/17/18 07:55 Troponin I 0.02 ng/mL D 03/17/18 21:50 NT-Pro-B Natriuret Pep 205 pg/mL (0-450) 03/17/18 07:55 Total Protein 7.2 g/dL (5.8-8.3) 03/20/18 06:30 Albumin 3.6 g/dL (3.0-4.8) 03/20/18 06:30 Globulin 3.6 gm/dL 03/20/18 06:30 Albumin/Globulin Ratio 1.0 (1.1-1.8) L 03/20/18 06:30 Triglycerides 61 mg/dL (35-160) 03/18/18 06:44 Cholesterol 123 mg/dL (130-200) L 03/18/18 06:44 LDL Cholesterol Direct 50 mg/dL (0-129) 03/18/18 06:44 HDL Cholesterol 53 mg/dL (29-60) 03/18/18 06:44 Prostate Specific Ag 1.6 ng/mL (0.00-2.5) 03/18/18 06:44 TSH 3rd Generation 0.84 mIU/mL (0.46-4.68) 03/18/18 06:44 Urine Color Yellow (YELLOW) 03/18/18 03:30 Urine Appearance Clear (CLEAR) 03/18/18 03:30 Urine pH 7.0 (4.7-8.0) 03/18/18 03:30 Ur Specific [place] <= 1.005 (1.005-1.035) 03/18/18 03:30 Urine Protein Negative mg/dL (<30 mg/dL) 03/18/18 03:30 Urine Glucose (UA) Negative mg/dL (NEGATIVE) 03/18/18 03:30 Urine Ketones Negative mg/dL (NEGATIVE) 03/18/18 03:30 Urine Blood Negative (NEGATIVE) 03/18/18 03:30 Urine Nitrate Negative (NEGATIVE) 03/18/18 03:30 Urine Bilirubin Negative (NEGATIVE) 03/18/18 03:30 Urine Urobilinogen 0.2 E.U./dL (<1 E.U./dL) 03/18/18 03:30 Ur Leukocyte Esterase Negative [place]ora/uL (NEGATIVE) 03/18/18 03:30 Urine RBC 0 - 2 /hpf (0-2) 03/17/18 12:29 Urine WBC 0 - 2 /hpf (0-6) 03/17/18 12:29 Ur Epithelial Cells None /hpf (0-5) 03/17/18 12:29 Urine Bacteria Occ (NEG) 03/17/18 12:29 Attending/Attestation - Attestation I have personally seen and examined this patient.: Yes I have fully participated in the care of the patient.: Yes I have reviewed all pertinent clinical information, including history, physical exam and plan: Yes Notes (Text): 03/20/18 14:39 attending note; Patient seen and examined with resident. patient is a 72 year old male with past medical history of hypertension, LLE DVT (2007) and obesity who presents with LLE pain, erythema and swelling. Patient was found to be tachycardic with elevated d-dimer. lower extremity Doppler is negative. Patient has chronic venous stasis. Uses compression stockings at home. CT is negative for PE. aneurysm of ascending aorta 4.4 cm. No previous study for comparison. Continue beta janay. needs follow up as outpatient. Cardiology evaluation appreciated. Echocardiogram showed ejection fraction of 55%. Elevated blood sugar; hemoglobin A1c is 7.4 .Dietitian evaluation requested. Started on glipizide. Diabeticeducation evaluation requested. mild lower extremity redness. resolved.continue IV Rocephin. podiatry evaluation appreciated. Physical therapy evaluation appreciated. Transfer to TCU today. upon discharge the patient will be referred to [facility] clinic. 03/20/18 14:39
--- NOTE | 2018-03-20 13:19 | PN ---
DATE: 03/20/2018 FOLLOWUP SUBJECTIVE: The patient denies any chest pain, back pain, dizziness or syncope. He denies any shortness of breath. PHYSICAL EXAMINATION: VITAL SIGNS: Blood pressure 104/61, heart rate 75, temperature 97.5, respirations 18. HEENT: Normocephalic. CHEST: Clear. HEART: S1 and S2 regular. Grade III/ ejection systolic murmur over left sternal border. ABDOMEN: Soft. EXTREMITIES: 1+ pitting edema. LABORATORY DATA: Hemoglobin and hematocrit 12.3 and 36.3, white count and platelet count are within normal limits. Today's SMA-7 is within normal limits except for glucose of 163. ASSESSMENT: 1. Moderate aortic stenosis and aortic insufficiency. 2. A 4.4 cm ascending aortic aneurysm. 3. Hypertension and hyperlipidemia. 5. Uncontrolled diabetes mellitus. RECOMMENDATIONS: Continue current aspirin, Lipitor, Lopressor, Neurontin, amlodipine and IV Rocephin. The case was discussed with the patient as well as the hospitalist and the medical scribe. The patient was given a written statement of what medical problems he has including moderate aortic stenosis with moderate aortic insufficiency and mild ascending thoracic aneurysm and will be given copies of both his CAT scan and echocardiography study to present to his primary physician in [place] where he lives. The patient was advised to have annual echos and annual CAT scans and was informed about the warning signs what he need to seek immediate medical care including retrosternal chest pain, syncopal episode, back pain with or without diaphoresis. Eddie Beckwith MD
== END 2018-03-20 16:02 | DRG 603 ==
LOC: ED 07:44 → ERH 11:39 → 2RNO 13:00 → 5RNO 03-19 13:52
PROVIDERS: ADMIT Internal Medicine; ATTEND Internal Medicine
DX: L03.116 Cellulitis of left lower limb (principal); I87.2 Venous insufficiency (chronic) (peripheral); I71.2 Thoracic aortic aneurysm, without rupture; I10 Essential (primary) hypertension; N40.1 Benign prostatic hyperplasia with lower urinary tract symptoms; N39.498 Other specified urinary incontinence; R35.1 Nocturia; E11.9 Type 2 diabetes mellitus without complications; E78.5 Hyperlipidemia, unspecified; I35.2 Nonrheumatic aortic (valve) stenosis with insufficiency; E66.9 Obesity, unspecified; Z68.37 Body mass index [BMI] 37.0-37.9, adult; Z86.718 Personal history of other venous thrombosis and embolism; Z79.82 Long term (current) use of aspirin

== ENCOUNTER 2018-03-20 16:07 | Inpatient (IN) | payer OTHER ==
[2018-03-20] MEDS: Insulin Lispro (humaLOG) LOW Coverage SC SCH ×2 (16:30→21:46)
[2018-03-20] MEDS: Clotrimazole/Betamethasone Cream(15 gm) TOP SCH (17:41)
[2018-03-20 18:31] VITALS: BMI 37.5
[2018-03-20] MEDS ORDERED: Pneumococcal 23-Valent Vaccine IM ONE (18:31)
[2018-03-21] MEDS: Enoxaparin 40 mg Syringe SC SCH (05:55)
[2018-03-21] MEDS: Pantoprazole 40 mg EC Tab PO SCH (05:55)
[2018-03-21] MEDS: cefTRIAXone 1 gm 1 GM/100 ML BAG IVPB SCH (05:55)
[2018-03-21] MEDS: Insulin Lispro (humaLOG) LOW Coverage SC SCH ×4 (07:22→21:56)
[2018-03-21] MEDS: Ammonium Lactate 12% Lotion (225 g) EXT SCH ×2 (09:26→17:47)
[2018-03-21] MEDS: Clotrimazole/Betamethasone Cream(15 gm) TOP SCH ×2 (09:27→17:48)
--- NOTE | 2018-03-21 10:40 | CP.PCM.HP ---
<Abby Mcgrath - Last Filed: 03/21/18 14:56> History of Present Illness - History of Present Illness History of Present Illness: Abby Mcgrath, PGY1, H&P for Dr Villegas: CC: left lower extremity swelling/rehab 72 yo male PMHx HTN, DM, BPH, LLE DVT dx 2007 not on anticoag, and obesity presents with LLE pain for 1 night and chronic LLE swelling. Patient reports he woke up around 3am on the morning of admission with 10/10 LLE pain which was sharp and throbbing in nature. Patient was trying to ambulate to the bathroom but was having difficulty doing so secondary to the pain. Venous doppler LE negative for DVT. CTA negative for PE, found to have 4.4 x4.2cm asceding aneurysm. Arterial duplex shows normal CALVIN and PVR. Given rocephin for pain. Echocardiogram shows EF 55.2%. mild LVH. mild-mod AR. Moderate valvular aortic stenosis. mild MR. Cardiology consulted, recommended annual CTA and echocardiogram, no surgical intervention currently. Pt also complained of urinary incontinence, hesitancy, BPH like symptoms. UA negative on admission. Urology consulted, as per patient's request. Physical therapy recommended TCU, pt agrees to go for further rehab. PMHx: HTN, DM, BPH, LLE DVT dx 2007 not on anticoag, and obesity PSurgHx: none Procedure: colonoscopy 2008 Meds: pls see chart ALL: PCN FamHx: father HTN SocHx: denies EtOH, tobacco, drug use. and lives in [place]. Is able to ambulate 10 blocks without cane/walker Present on Admission - Present on Admission Any Indicators Present on Admission: No History of DVT/PE: No History of Uncontrolled Diabetes: No Urinary Catheter: No Decubitus Ulcer Present: No Review of Systems - Review of Systems All systems: reviewed and no additional remarkable complaints except Review of Systems: as per HPI Past Patient History - Infectious Disease Hx of Infectious Diseases: None - Past Social History Smoking Status: Never Smoked - CARDIAC Hx Hypertension: Yes - PULMONARY Hx Respiratory Disorders: No - NEUROLOGICAL Hx Neurological Disorder: No - HEENT Hx HEENT Problems: No - RENAL Hx Chronic Kidney Disease: No - ENDOCRINE/METABOLIC Hx Diabetes Mellitus Type 2: Yes - HEMATOLOGICAL/ONCOLOGICAL Hx Blood Disorders: Yes Other/Comment: DVT - INTEGUMENTARY Hx Dermatological Problems: No - MUSCULOSKELETAL/RHEUMATOLOGICAL Hx Falls: No - GASTROINTESTINAL Hx Gastrointestinal Disorders: No (GERD) - GENITOURINARY/GYNECOLOGICAL Hx Genitourinary Disorders: Yes (URGENCY,HAS PROSTATE PROBLEM ON MEDS) Hx Reproductive Disorders: Yes (BPH) - PSYCHIATRIC Hx Psychophysiologic Disorder: No Hx Substance Use: No - SURGICAL HISTORY Hx Surgeries: No Meds Allergies/Adverse Reactions: Allergies Allergy/AdvReac Type Severity Reaction Status Date / Time Penicillins Allergy SHORTNESS Verified 03/20/18 16:13 OF BREATH Physical Exam - Additional Findings Additional findings: - Constitutional Appears: Non-toxic, No Acute Distress - Head Exam Head Exam: ATRAUMATIC, NORMOCEPHALIC - Eye Exam Eye Exam: EOMI, PERRL. absent: Conjunctival injection, Nystagmus, Scleral icterus Pupil Exam: NORMAL ACCOMODATION, PERRL. absent: Irregular, Unequal - ENT Exam ENT Exam: Mucous Membranes Moist - Neck Exam Neck Exam: Full ROM - Respiratory Exam Respiratory Exam: Clear to Ausculation Bilateral, NORMAL BREATHING PATTERN. absent: Accessory Muscle Use, Rales, Rhonchi, Wheezes, Stridor - Cardiovascular Exam Cardiovascular Exam: RRR, +S1, +S2, Murmur (+ aortic stenosis systolic murmur) - Extremities Exam Additional comments: + chronic venous stasis changes L>R, discoloration noted, 1-2+ pulses dorsalis pedis and posterior tibialis on left foot. R foot: 2+ dorsalis pedis and post tibialis pulses. Sensation intact. + both lower extremities warm to touch. - Back Exam Back Exam: NORMAL INSPECTION - Neurological Exam Neurological Exam: Alert, Awake, Oriented x3 - Psychiatric Exam Psychiatric exam: Normal Affect, Normal Mood - Skin Skin Exam: Dry, Normal Color, Warm Results - Vital Signs Recent Vital Signs: Last Vital Signs Temp 98 F 03/20/18 18:12 Pulse 98 H 03/21/18 09:27 Resp 18 03/20/18 18:12 BP 139/88 03/21/18 09:27 Pulse Ox - Labs Labs: Laboratory Results - last 24 hr 03/20/18 03/20/18 03/21/18 16:51 21:41 06:08 POC Glucose (mg/dL) 129 H 184 H 157 H Assessment & Plan - Assessment and Plan (Free Text) Assessment: 72 yo male PMHx HTN, DM, BPH, LLE DVT dx 2008 not on anticoag, and obesity, presents with LLE pain/cellulitis: LLE chronic venous stasis changes/cellulitis: -venous doppler LE neg for DVT -CTA neg for PE. aneurysm of ascending aorta 4.4x4.2 cm. prior records unavailable. Outpatient follow up. -Arterial LE duplex normal CALVIN and PVR. -motrin prn pain -rocephin -Echo shows EF 55.2%. mild LVH. mild-mod AR. Moderate valvular aortic stenosis. mild MR. -trop <0.01x2, 0.02 -Cardio consulted. appreciate recs. -podiatry consulted. recommends lotrisone cream. Ascending aortic aneurysm: - CTA shows aneurysm of ascending aorta 4.4x4.2 cm. prior records unavailable. - Cardiology on board, recommends annual CTA and echocardiogram outpatient. - patient currently asymptomatic - not a smoker Leukocytosis: - likely reactive vs cellulitis - resolved - UA neg for infection - blood cultures (2/2) NTD - Rocephin qd for empiric tx of cellulitis of LLE Hx of HTN: -continue home meds -ASA 81mg qd -Norvasc 5mg qd -Metoprolol 50mg bid -Lipitor 10mg qd Hx of DM2: -HgbA1c 7.6 -neurotin 300mg qd -Glipizide -HHD with [facility] Hx of BPH: -PSA 1.6 -flomax 0.4 daily -Urology consulted. 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 Discussed with patient, wants to go to rehab. Put in TCU eval. Diet: HHD with [facility] Case seen and discussed with Dr Norman. Abby Mcgrath, PGY1 - Date & Time Date: 03/21/18 Time: 15:03 <Breana Norman - Last Filed: 03/21/18 18:50> Results - Vital Signs Recent Vital Signs: Last Vital Signs Temp 98.2 F 03/21/18 16:17 Pulse 80 03/21/18 16:17 Resp 20 03/21/18 16:17 BP 125/79 03/21/18 17:48 Pulse Ox 99 03/21/18 16:17 - Labs Labs: Laboratory Results - last 24 hr 03/20/18 03/21/18 03/21/18 21:41 06:08 12:05 POC Glucose (mg/dL) 184 H 157 H 91 03/21/18 16:44 POC Glucose (mg/dL) 145 H Attending/Attestation - Attestation I have personally seen and examined this patient.: Yes I have fully participated in the care of the patient.: Yes I have reviewed all pertinent clinical information: Yes Notes (Text): 03/21/18 17:59 attending note; Patient seen and examined with resident in TCU. patient is a 72 year old male with past medical history of hypertension, LLE DVT (2007) and obesity who presents with LLE pain, erythema and swelling. Patient was admitted to the medical side and monitored closely. lower extremity Doppler is negative. Patient has chronic venous stasis. Uses compression stockings at home. CT is negative for PE. aneurysm of ascending aorta 4.4 cm. No previous study for comparison. Continue beta janay. needs follow up as outpatient. Cardiology evaluation appreciated. Echocardiogram showed ejection fraction of 55%. Elevated blood sugar; hemoglobin A1c is 7.4 .Dietitian evaluation appreciated. Started on glipizide. Urinary incontinence; patient is on Flomax. Urology evaluation requested. Urinalysis is normal. mild lower extremity redness. resolved.continue IV Rocephin. Continue physical therapy. upon discharge the patient will be referred to [facility] clinic.
[2018-03-22] MEDS: Enoxaparin 40 mg Syringe SC SCH (06:05)
[2018-03-22] MEDS: Pantoprazole 40 mg EC Tab PO SCH (06:05)
[2018-03-22] MEDS: cefTRIAXone 1 gm 1 GM/100 ML BAG IVPB SCH (06:06)
[2018-03-22] MEDS: Insulin Lispro (humaLOG) LOW Coverage SC SCH ×4 (07:50→21:51)
[2018-03-22] MEDS: Ammonium Lactate 12% Lotion (225 g) EXT SCH ×2 (09:32→17:39)
[2018-03-22] MEDS: Clotrimazole/Betamethasone Cream(15 gm) TOP SCH ×2 (09:32→17:40)
[2018-03-23] MEDS: Enoxaparin 40 mg Syringe SC SCH (05:13)
[2018-03-23] MEDS: Pantoprazole 40 mg EC Tab PO SCH (05:29)
[2018-03-23] MEDS: Insulin Lispro (humaLOG) LOW Coverage SC SCH ×4 (07:02→22:36)
[2018-03-23] MEDS: Ammonium Lactate 12% Lotion (225 g) EXT SCH ×2 (09:16→17:26)
[2018-03-23] MEDS: Clotrimazole/Betamethasone Cream(15 gm) TOP SCH ×2 (10:00→17:27)
--- NOTE | 2018-03-23 10:28 | CP.PCM.PN ---
<Abby Mcgrath - Last Filed: 03/23/18 10:57> Subjective - Date & Time of Evaluation Date of Evaluation: 03/23/18 Time of Evaluation: 10:20 - Subjective Subjective: Abby Mcgrath, PGY1, Medicine Progress Note for Dr Norman: Patient seen and examined at bedside. No acute events overnight. Denies leg pain , cp, sob, headache, abdominal pain, diarrhea. Patient states that he would like to see Urologist while he is in hospital. Patient ambulating well with Physical therapy. Objective - Vital Signs/Intake and Output Vital Signs (last 24 hours): Temp Pulse Resp BP Pulse Ox 98.8 F 105 H 20 110/79 99 03/22/18 16:30 03/23/18 09:18 03/22/18 16:30 03/23/18 09:18 03/22/18 16:30 - Medications Medications: Current Medications Amlodipine Besylate (Norvasc) 5 mg PO DAILY SERGIO PRN Reason: Protocol Last Admin: 03/23/18 09:18 Dose: 5 mg Aspirin (Aspirin Chewable) 81 mg PO 0800 SERGIO PRN Reason: Protocol Last Admin: 03/23/18 09:16 Dose: 81 mg Atorvastatin Calcium (Lipitor) 10 mg PO DIN SERGIO PRN Reason: Protocol Last Admin: 03/22/18 17:39 Dose: 10 mg Betamethasone/Clotrimazole (Lotrisone) 0 gm TOP BID [facility] PRN Reason: Protocol Last Admin: 03/22/18 17:40 Dose: 1 applic Enoxaparin Sodium (Lovenox) 40 mg SC 0600 SERGIO PRN Reason: Protocol Last Admin: 03/23/18 05:13 Dose: 40 mg Gabapentin (Neurontin) 300 mg PO DAILY SERGIO PRN Reason: Protocol Last Admin: 03/23/18 09:18 Dose: 300 mg Glipizide (Glucotrol) 5 mg PO 0700 SERGIO PRN Reason: Protocol Last Admin: 03/23/18 07:01 Dose: 5 mg Ibuprofen (Motrin Tab) 400 mg PO Q6H PRN; Protocol PRN Reason: Pain, moderate (4-7) Insulin Human Lispro (Humalog Low) 0 units SC ACHS SERGIO PRN Reason: Protocol Last Admin: 03/23/18 07:02 Dose: 1 unit Lactic Acid (Lac-Hydrin 12% Lotion (225 G)) 1 gm EXT BID SERGIO PRN Reason: Protocol Last Admin: 03/23/18 09:16 Dose: 1 applic Metoprolol Tartrate (Lopressor) 50 mg PO 0800,1800 SERGIO PRN Reason: Protocol Last Admin: 03/23/18 09:17 Dose: 50 mg Pantoprazole Sodium (Protonix Ec Tab) 40 mg PO 0630 SERGIO PRN Reason: Protocol Last Admin: 03/23/18 05:29 Dose: 40 mg Tamsulosin HCl (Flomax) 0.4 mg PO 1800 SERGIO PRN Reason: Protocol Last Admin: 03/22/18 17:38 Dose: 0.4 mg - Additional Findings Additional findings: - Constitutional Appears: Non-toxic, No Acute Distress - Head Exam Head Exam: ATRAUMATIC, NORMOCEPHALIC - Eye Exam Eye Exam: EOMI, PERRL. absent: Conjunctival injection, Nystagmus, Scleral icterus Pupil Exam: NORMAL ACCOMODATION, PERRL. absent: Irregular, Unequal - ENT Exam ENT Exam: Mucous Membranes Moist - Neck Exam Neck Exam: Full ROM - Respiratory Exam Respiratory Exam: Clear to Ausculation Bilateral, NORMAL BREATHING PATTERN. absent: Accessory Muscle Use, Rales, Rhonchi, Wheezes, Stridor - Cardiovascular Exam Cardiovascular Exam: RRR, +S1, +S2, Murmur (+ aortic stenosis systolic murmur) - Extremities Exam Additional comments: + chronic venous stasis changes L>R, discoloration noted, 1-2+ pulses dorsalis pedis and posterior tibialis on left foot. R foot: 2+ dorsalis pedis and post tibialis pulses. Sensation intact. + both lower extremities warm to touch. - Back Exam Back Exam: NORMAL INSPECTION - Neurological Exam Neurological Exam: Alert, Awake, Oriented x3 - Psychiatric Exam Psychiatric exam: Normal Affect, Normal Mood - Skin Skin Exam: Dry, Normal Color, Warm Assessment and Plan - Assessment and Plan (Free Text) Assessment: 72 yo male PMHx HTN, DM, BPH, LLE DVT dx 2007 not on anticoag, and obesity, presents with LLE pain/cellulitis, treated with 5 days of IV rocephin. Patient transferred to TCU for rehab: LLE chronic venous stasis changes/cellulitis: -resolved -venous doppler LE neg for DVT -CTA neg for PE. aneurysm of ascending aorta 4.4x4.2 cm. prior records unavailable. Outpatient follow up. -Arterial LE duplex normal CALVIN and PVR. -motrin prn pain -s/p rocephin x 5 days. Discontinued -Echo shows EF 55.2%. mild LVH. mild-mod AR. Moderate valvular aortic stenosis. mild MR. -trop <0.01x2, 0.02 -Cardio consulted. appreciate recs. -podiatry consulted. On lotrisone cream. Ascending aortic aneurysm: - CTA shows aneurysm of ascending aorta 4.4x4.2 cm. prior records unavailable. - Cardiology on board, recommends annual CTA and echocardiogram outpatient. Discussed thoroughly with patient. - patient currently asymptomatic - not a smoker Leukocytosis: - likely reactive vs cellulitis - resolved - UA neg for infection - blood cultures (2/) NTD - Rocephin qd for empiric tx of cellulitis of LLE Hx of HTN: -continue home meds -ASA 81mg qd -Norvasc 5mg qd -Metoprolol 50mg bid -Lipitor 10mg qd Hx of DM2: -HgbA1c 7.6 -neurotin 300mg qd -Glipizide [place] [facility] Hx of BPH: -PSA 1.6 -flomax 0.4 daily -Urology consulted. 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 Abby Mcgrath, PGY1 <Breana Norman - Last Filed: 03/24/18 10:08> Objective - Vital Signs/Intake and Output Vital Signs (last 24 hours): Temp Pulse Resp BP Pulse Ox 97.7 F 100 H 16 129/87 99 03/23/18 16:00 03/24/18 09:21 03/23/18 16:00 03/24/18 09:21 03/22/18 16:30 - Medications Medications: Current Medications Amlodipine Besylate (Norvasc) 5 mg PO DAILY SERGIO PRN Reason: Protocol Last Admin: 03/24/18 09:21 Dose: 5 mg Aspirin (Aspirin Chewable) 81 mg PO 0800 SERGIO PRN Reason: Protocol Last Admin: 03/24/18 09:18 Dose: 81 mg Atorvastatin Calcium (Lipitor) 10 mg PO DIN SERGIO PRN Reason: Protocol Last Admin: 03/23/18 17:25 Dose: 10 mg Betamethasone/Clotrimazole (Lotrisone) 0 gm TOP BID SERG[facility] PRN Reason: Protocol Last Admin: 03/23/18 17:27 Dose: 1 applic Enoxaparin Sodium (Lovenox) 40 mg SC 0600 SERGIO PRN Reason: Protocol Last Admin: 03/24/18 06:45 Dose: 40 mg Gabapentin (Neurontin) 300 mg PO DAILY SERGIO PRN Reason: Protocol Last Admin: 03/24/18 09:20 Dose: 300 mg Glipizide (Glucotrol) 5 mg PO 0700 SERGIO PRN Reason: Protocol Last Admin: 03/24/18 06:45 Dose: 5 mg Ibuprofen (Motrin Tab) 400 mg PO Q6H PRN; Protocol PRN Reason: Pain, moderate (4-7) Insulin Human Lispro (Humalog Low) 0 units SC ACHS SERGIO PRN Reason: Protocol Last Admin: 03/24/18 07:02 Dose: Not Given Lactic Acid (Lac-Hydrin 12% Lotion (225 G)) 1 gm EXT BID SERGIO PRN Reason: Protocol Last Admin: 03/24/18 09:18 Dose: 1 applic Metoprolol Tartrate (Lopressor) 50 mg PO 0800,1800 SERGIO PRN Reason: Protocol Last Admin: 03/24/18 09:19 Dose: 50 mg Pantoprazole Sodium (Protonix Ec Tab) 40 mg PO 0630 SERGIO PRN Reason: Protocol Last Admin: 03/24/18 06:45 Dose: 40 mg Tamsulosin HCl (Flomax) 0.4 mg PO 1800 SERGIO PRN Reason: Protocol Last Admin: 03/23/18 17:24 Dose: 0.4 mg Attending/Attestation - Attestation I have personally seen and examined this patient.: Yes I have fully participated in the care of the patient.: Yes I have reviewed all pertinent clinical information, including history, physical exam and plan: Yes Notes (Text): 03/24/18 10:06 attending note; Patient seen and examined with resident in TCU. Patient is a 72 year old male with past medical history of hypertension, LLE DVT (2007) and obesity who presents with LLE pain, erythema and swelling. Patient was admitted to the medical side and monitored closely. lower extremity Doppler is negative. Patient has chronic venous stasis. Uses compression stockings at home. CT is negative for PE. aneurysm of ascending aorta 4.4 cm. No previous study for comparison. Continue beta janay. needs follow up as outpatient. Cardiology evaluation appreciated. Echocardiogram showed ejection fraction of 55%. Elevated blood sugar; hemoglobin A1c is 7.4 .Dietitian evaluation appreciated. Started on glipizide. Urinary incontinence; patient is on Flomax. Urology evaluation requested. Urinalysis is normal. mild lower extremity redness. resolved. completed IV rocephin therapy. Continue physical therapy. upon discharge the patient will be referred to [facility] [place].
[2018-03-24] MEDS: Enoxaparin 40 mg Syringe SC SCH (06:45)
[2018-03-24] MEDS: Pantoprazole 40 mg EC Tab PO SCH (06:45)
[2018-03-24] MEDS: Insulin Lispro (humaLOG) LOW Coverage SC SCH ×4 (07:02→22:03)
[2018-03-24] MEDS: Ammonium Lactate 12% Lotion (225 g) EXT SCH ×2 (09:18→17:57)
[2018-03-24] MEDS: Clotrimazole/Betamethasone Cream(15 gm) TOP SCH ×2 (12:54→17:59)
[2018-03-25] MEDS: Enoxaparin 40 mg Syringe SC SCH (06:14)
[2018-03-25] MEDS: Pantoprazole 40 mg EC Tab PO SCH (06:14)
[2018-03-25] MEDS: Insulin Lispro (humaLOG) LOW Coverage SC SCH ×4 (07:00→23:11)
[2018-03-25] MEDS: Ammonium Lactate 12% Lotion (225 g) EXT SCH ×2 (10:31→17:29)
[2018-03-25] MEDS: Clotrimazole/Betamethasone Cream(15 gm) TOP SCH (10:31)
--- NOTE | 2018-03-25 13:39 | CP.PCM.PN ---
<Risa Roberts - Last Filed: 03/25/18 14:07> Subjective - Date & Time of Evaluation Date of Evaluation: 03/25/18 Time of Evaluation: 13:35 - Subjective Subjective: Medicine Progress Note Patient seen and examined at bedside. No acute events overnight. Patient denies lower extremity pain over night. Patient reports that he has been doing better overall. Patient complained of urgency, and would like to see a Urologist while in the hospital. Patient ambulating well with PT. Otherwise, patient denies sob , headache, abdominal pain, diarrhea. Objective - Vital Signs/Intake and Output Vital Signs (last 24 hours): Temp Pulse Resp BP Pulse Ox 98.2 F 66 18 114/78 99 03/24/18 16:00 03/25/18 10:30 03/24/18 16:00 03/25/18 10:30 03/22/18 16:30 - Medications Medications: Current Medications Amlodipine Besylate (Norvasc) 5 mg PO DAILY SERGIO PRN Reason: Protocol Last Admin: 03/25/18 10:30 Dose: 5 mg Aspirin (Aspirin Chewable) 81 mg PO 0800 SERGIO PRN Reason: Protocol Last Admin: 03/25/18 08:11 Dose: 81 mg Atorvastatin Calcium (Lipitor) 10 mg PO DIN SERGIO PRN Reason: Protocol Last Admin: 03/24/18 17:57 Dose: 10 mg Clotrimazole (Lotrimin Af 1%) 0 ml TOP BID [facility] Enoxaparin Sodium (Lovenox) 40 mg SC 0600 SERGIO PRN Reason: Protocol Last Admin: 03/25/18 06:14 Dose: 40 mg Gabapentin (Neurontin) 300 mg PO DAILY SERGIO PRN Reason: Protocol Last Admin: 03/25/18 10:30 Dose: 300 mg Glipizide (Glucotrol) 5 mg PO 0700 SERGIO PRN Reason: Protocol Last Admin: 03/25/18 07:00 Dose: 5 mg Ibuprofen (Motrin Tab) 400 mg PO Q6H PRN; Protocol PRN Reason: Pain, moderate (4-7) Insulin Human Lispro (Humalog Low) 0 units SC ACHS SERGIO PRN Reason: Protocol Last Admin: 03/25/18 11:13 Dose: Not Given Lactic Acid (Lac-Hydrin 12% Lotion (225 G)) 1 gm EXT BID SERGIO PRN Reason: Protocol Last Admin: 03/25/18 10:31 Dose: 1 applic Metoprolol Tartrate (Lopressor) 50 mg PO 0800,1800 SERGIO PRN Reason: Protocol Last Admin: 03/25/18 08:11 Dose: 50 mg Pantoprazole Sodium (Protonix Ec Tab) 40 mg PO 0630 SERGIO PRN Reason: Protocol Last Admin: 03/25/18 06:14 Dose: 40 mg Tamsulosin HCl (Flomax) 0.4 mg PO 1800 SERGIO PRN Reason: Protocol Last Admin: 03/24/18 17:56 Dose: 0.4 mg - Constitutional Appears: Non-toxic, No Acute Distress - Head Exam Head Exam: ATRAUMATIC, NORMAL INSPECTION, NORMOCEPHALIC - Eye Exam Eye Exam: Normal appearance, PERRL - ENT Exam ENT Exam: Mucous Membranes Moist, Normal Exam - Neck Exam Neck Exam: Full ROM. absent: Lymphadenopathy, Tenderness - Respiratory Exam Respiratory Exam: Clear to Ausculation Bilateral. absent: Accessory Muscle Use , Chest Wall Tenderness, Decreased Breath Sounds, Rales, Rhonchi - Cardiovascular Exam Cardiovascular Exam: REGULAR RHYTHM, RRR, +S1, +S2. absent: Diastolic murmur, Gallop, Rubs, +S4, Murmur - GI/Abdominal Exam GI & Abdominal Exam: Soft, Normal Bowel Sounds. absent: Distended, Guarding, Diminished Bowel Sounds - Extremities Exam Extremities Exam: Pedal Edema (+2 edema in left lower extremity ). absent: Calf Tenderness Additional comments: left lower extremity hyperpigmentation appreciated with left worse than right. Scaling of the lower extremity noted on inspection. - Neurological Exam Neurological Exam: Alert, Awake, CN II-XII Intact, Oriented x3 - Psychiatric Exam Psychiatric exam: Normal Affect, Normal Mood - Skin Skin Exam: absent: Normal Color (see above findings) Assessment and Plan - Assessment and Plan (Free Text) Assessment: 72 yo male PMHx HTN, DM, BPH, LLE DVT dx 2008 not on anticoag, and obesity, presents with LLE pain and discoloration 2/2 chronic venous stasis. Patient currently in TCU for rehab: LLE chronic venous stasis - Venous doppler LE neg for DVT - Arterial LE duplex normal CALVIN and PVR. - Motrin prn pain - S/P rocephin x 5 days. Discontinued. - Podiatry consulted. - Discontinue lotrisone cream - Started topical clotrimazole cream - ASA 81mg qd - Lipitor 10mg qd Ascending aortic aneurysm: - CTA shows aneurysm of ascending aorta 4.4x4.2 cm. prior records unavailable. - Echo shows EF 55.2%. mild LVH. mild-mod AR. Moderate valvular aortic stenosis. mild MR. - Cardiology consulted - Repeat CTA in 6 month and echocardiogram outpatient. Discussed thoroughly with patient. - Recommend vascular surgery consult outpatient - Patient currently asymptomatic - Non-smoker Hx of HTN: -Continue home meds -Norvasc 5mg qd -Metoprolol 50mg bid Hx of DM2: -HgbA1c 7.6 -Neurotin 300mg qd for neuropathic pain -Glipizide -HHD with [facility] Hx of BPH: -PSA 1.6 -Flomax 0.4 daily -Urology consulted. 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 GI ppx: protonix 40mg po qd DVT ppx: lovenox sq Diet: HHD with [facility] Case seen and discussed with Risa Gupta PGY1 <Giovany Boo - Last Filed: 03/28/18 15:05> Objective - Vital Signs/Intake and Output Vital Signs (last 24 hours): Temp Pulse Resp BP Pulse Ox 98 F 87 18 135/70 98 03/27/18 16:00 03/28/18 09:24 03/27/18 16:00 03/28/18 09:24 03/27/18 16:00 Attending/Attestation - Attestation I have personally seen and examined this patient.: Yes I have fully participated in the care of the patient.: Yes I have reviewed all pertinent clinical information, including history, physical exam and plan: Yes Notes (Text): 72 yo male PMHx HTN, DM, BPH, LLE DVT dx 2007 not on anticoag, and obesity, presents with LLE pain and discoloration 2/2 chronic venous stasis. Patient currently in TCU for rehab: LLE chronic venous stasis
[2018-03-25] MEDS: Clotrimazole 1% Top Soln(10 ml) TOP SCH (17:31)
[2018-03-26] MEDS: Enoxaparin 40 mg Syringe SC SCH (05:30)
[2018-03-26] MEDS: Pantoprazole 40 mg EC Tab PO SCH (05:30)
[2018-03-26] MEDS: Insulin Lispro (humaLOG) LOW Coverage SC SCH ×4 (06:30→22:07)
[2018-03-26] MEDS: Ammonium Lactate 12% Lotion (225 g) EXT SCH ×2 (09:50→17:17)
[2018-03-26] MEDS: Clotrimazole 1% Top Soln(10 ml) TOP SCH ×2 (09:52→17:19)
[2018-03-27] MEDS: Enoxaparin 40 mg Syringe SC SCH (05:45)
[2018-03-27] MEDS: Pantoprazole 40 mg EC Tab PO SCH (05:46)
[2018-03-27] MEDS: Insulin Lispro (humaLOG) LOW Coverage SC SCH ×4 (06:42→21:41)
[2018-03-27] MEDS: Clotrimazole 1% Top Soln(10 ml) TOP SCH ×2 (09:37→17:32)
[2018-03-27] MEDS: Ammonium Lactate 12% Lotion (225 g) EXT SCH ×2 (10:00→17:31)
--- NOTE | 2018-03-27 16:44 | CP.PCM.PN ---
<AliciaJose - Last Filed: 03/27/18 16:37> Subjective - Date & Time of Evaluation Date of Evaluation: 03/27/18 Time of Evaluation: 16:37 - Subjective Subjective: Medicine Progress Note Pt seen and examined at bedside. No acute overnight events. Patient states that left ankle pain is improved. Patient denies CP, SOB, n/v/d, abdominal pain, fever, chills, TELLO, or dizziness. Objective - Vital Signs/Intake and Output Vital Signs (last 24 hours): Temp Pulse Resp BP Pulse Ox 97.5 F L 96 H 14 111/74 100 03/26/18 10:00 03/27/18 09:38 03/26/18 10:00 03/27/18 09:38 03/25/18 16:47 - Medications Medications: Current Medications Amlodipine Besylate (Norvasc) 5 mg PO DAILY [facility] PRN Reason: Protocol Last Admin: 03/27/18 09:38 Dose: 5 mg Aspirin (Aspirin Chewable) 81 mg PO 0800 [facility] PRN Reason: Protocol Last Admin: 03/27/18 07:45 Dose: 81 mg Atorvastatin Calcium (Lipitor) 10 mg PO DIN [facility] PRN Reason: Protocol Last Admin: 03/26/18 17:18 Dose: 10 mg Clotrimazole (Lotrimin Af 1%) 0 ml TOP BID [facility] Last Admin: 03/27/18 09:37 Dose: 1 applic Enoxaparin Sodium (Lovenox) 40 mg SC 0600 [facility] PRN Reason: Protocol Last Admin: 03/27/18 05:45 Dose: 40 mg Gabapentin (Neurontin) 300 mg PO DAILY [facility] PRN Reason: Protocol Last Admin: 03/27/18 09:38 Dose: 300 mg Glipizide (Glucotrol) 5 mg PO 0700 [facility] PRN Reason: Protocol Last Admin: 03/27/18 06:42 Dose: 5 mg Ibuprofen (Motrin Tab) 400 mg PO Q6H PRN; Protocol PRN Reason: Pain, moderate (4-7) Last Admin: 03/26/18 09:52 Dose: 400 mg Insulin Human Lispro (Humalog Low) 0 units SC ACHS [facility] PRN Reason: Protocol Last Admin: 03/27/18 11:45 Dose: Not Given Lactic Acid (Lac-Hydrin 12% Lotion (225 G)) 1 gm EXT BID [facility] PRN Reason: Protocol Last Admin: 03/27/18 10:00 Dose: 1 applic Metoprolol Tartrate (Lopressor) 50 mg PO 0800,1800 [facility] PRN Reason: Protocol Last Admin: 03/27/18 07:53 Dose: 50 mg Pantoprazole Sodium (Protonix Ec Tab) 40 mg PO 0630 [facility] PRN Reason: Protocol Last Admin: 03/27/18 05:46 Dose: 40 mg Tamsulosin HCl (Flomax) 0.4 mg PO 1800 [facility] PRN Reason: Protocol Last Admin: 03/26/18 17:17 Dose: 0.4 mg - Constitutional Appears: Well - Head Exam Head Exam: ATRAUMATIC, NORMAL INSPECTION, NORMOCEPHALIC - Eye Exam Eye Exam: EOMI, Normal appearance, PERRL Pupil Exam: NORMAL ACCOMODATION, PERRL - ENT Exam ENT Exam: Mucous Membranes Moist, Normal Exam - Neck Exam Neck Exam: Full ROM, Normal Inspection. absent: Lymphadenopathy - Respiratory Exam Respiratory Exam: Clear to Ausculation Bilateral, NORMAL BREATHING PATTERN - Cardiovascular Exam Cardiovascular Exam: +S1, +S2, Murmur (3/6 best at right sternal border) - GI/Abdominal Exam GI & Abdominal Exam: Soft, Normal Bowel Sounds. absent: Bruit, Distended, Firm , Guarding, Tenderness - Extremities Exam Extremities Exam: Full ROM, Normal Capillary Refill, Normal Inspection. absent : Joint Swelling, Pedal Edema - Back Exam Back Exam: NORMAL INSPECTION - Neurological Exam Neurological Exam: Alert, Awake, CN II-XII Intact, Normal Gait, Oriented x3 - Psychiatric Exam Psychiatric exam: Normal Affect, Normal Mood - Skin Skin Exam: Dry, Intact, Normal Color, Warm Assessment and Plan - Assessment and Plan (Free Text) Assessment: 72 yo male PMHx HTN, DM, BPH, LLE DVT dx 2008 not on anticoag, and obesity, presents with LLE pain and discoloration 2/2 chronic venous stasis. Patient currently in TCU for rehab. Plan: LLE chronic venous stasis - Venous doppler LE neg for DVT - Arterial LE duplex normal CALVIN and PVR. - Motrin prn pain - S/P rocephin x 5 days. Discontinued. - Podiatry consulted. - Cont topical clotrimazole cream - ASA 81mg qd - Lipitor 10mg qd Ascending aortic aneurysm: - CTA shows aneurysm of ascending aorta 4.4x4.2 cm. prior records unavailable. - Echo shows EF 55.2%. mild LVH. mild-mod AR. Moderate valvular aortic stenosis. mild MR. - Cardiology consulted - Repeat CTA in 6 month and echocardiogram outpatient. Discussed thoroughly with patient. - Recommend vascular surgery consult outpatient - Patient currently asymptomatic - Non-smoker Hx of HTN: -Continue home meds -Norvasc 5mg qd -Metoprolol 50mg bid Hx of DM2: -HgbA1c 7.6 -Neurotin 300mg qd for neuropathic pain -Glipizide -Counselled patient on importance of medication compliance Hx of BPH: -PSA 1.6 -Flomax 0.4 daily -Urology consulted. Recommended timed voiding and outpatient follow up Hx of obesity: -Orbitread Operator consultation GI ppx: protonix 40mg po qd DVT ppx: lovenox sq Diet: HHD with ALF Case seen and discussed with Dr Castro. Rene Vargas, PGY2 <Lexy Castro R - Last Filed: 03/27/18 18:44> Objective - Vital Signs/Intake and Output Vital Signs (last 24 hours): Temp Pulse Resp BP Pulse Ox 98 F 78 18 142/84 98 03/27/18 16:00 03/27/18 17:31 03/27/18 16:00 03/27/18 17:31 03/27/18 16:00 - Medications Medications: Current Medications Amlodipine Besylate (Norvasc) 5 mg PO DAILY [facility] PRN Reason: Protocol Last Admin: 03/27/18 09:38 Dose: 5 mg Aspirin (Aspirin Chewable) 81 mg PO 0800 [facility] PRN Reason: Protocol Last Admin: 03/27/18 07:45 Dose: 81 mg Atorvastatin Calcium (Lipitor) 10 mg PO DIN [facility] PRN Reason: Protocol Last Admin: 03/27/18 17:31 Dose: 10 mg Clotrimazole (Lotrimin Af 1%) 0 ml TOP BID [facility] Last Admin: 03/27/18 17:32 Dose: 1 applic Enoxaparin Sodium (Lovenox) 40 mg SC 0600 [facility] PRN Reason: Protocol Last Admin: 03/27/18 05:45 Dose: 40 mg Gabapentin (Neurontin) 300 mg PO DAILY [facility] PRN Reason: Protocol Last Admin: 03/27/18 09:38 Dose: 300 mg Glipizide (Glucotrol) 5 mg PO 0700 [facility] PRN Reason: Protocol Last Admin: 03/27/18 06:42 Dose: 5 mg Ibuprofen (Motrin Tab) 400 mg PO Q6H PRN; Protocol PRN Reason: Pain, moderate (4-7) Last Admin: 03/26/18 09:52 Dose: 400 mg Insulin Human Lispro (Humalog Low) 0 units SC ACHS [facility] PRN Reason: Protocol Last Admin: 03/27/18 17:29 Dose: 1 unit Lactic Acid (Lac-Hydrin 12% Lotion (225 G)) 1 gm EXT BID [facility] PRN Reason: Protocol Last Admin: 03/27/18 17:31 Dose: 1 applic Metoprolol Tartrate (Lopressor) 50 mg PO 0800,1800 [facility] PRN Reason: Protocol Last Admin: 03/27/18 17:31 Dose: 50 mg Pantoprazole Sodium (Protonix Ec Tab) 40 mg PO 0630 [facility] PRN Reason: Protocol Last Admin: 03/27/18 05:46 Dose: 40 mg Tamsulosin HCl (Flomax) 0.4 mg PO 1800 [facility] PRN Reason: Protocol Last Admin: 03/27/18 17:29 Dose: 0.4 mg Attending/Attestation - Attestation I have personally seen and examined this patient.: Yes I have fully participated in the care of the patient.: Yes I have reviewed all pertinent clinical information, including history, physical exam and plan: Yes Notes (Text): Patient seen and examined by me at 10:40 AM with resident. Case including physical assessment and plan discussed with resident. Agree with above with following additions and changes. Patient states he is feeling better than yesterday. Patient states that he was having left ankle pain yesterday which has now resolved. Patient is ambulating. He denies any chest pain or shortness of breath. No nausea or vomiting. No abdominal pain. No headaches or dizziness. No fevers or chills. No dysuria. No diarrhea or constipation. Physical exam: Gen: Patient is awake and alert sitting up in chair in no acute distress HEENT: Normocephalic atraumatic, extraocular muscles intact, pupils equal reactive, oropharynx is pink and moist, no pharyngeal erythema or exudate appreciated, neck is supple. Cardiovascular: Normal rhythm, normal S1-S2, positive systolic murmur. No rubs or gallops appreciated Pulmonary: Normal respiratory effort. No rhonchi, rales, or wheezing appreciated Gastrointestinal: Soft, nontender, nondistended, positive bowel sounds all 4 quadrants, no guarding. Positive globular abdomen. Musculoskeletal: Moves all extremities, no calf tenderness. Left lower extremity with some edema when compared to right. Central nervous system: AAO 3 Dermatologic: Skin warm and dry. Positive bilateral lower extremity venous stasis color changes. Assessment and plan: Patient is a 72-year-old male who presented with left lower extremity pain and discoloration secondary to venous stasis. Patient was also treated with 5 days of Rocephin for cellulitis. Patient is advised to continue compression stockings at home. Patient states that he was placed on metformin approximately 2 years ago. Patient was unable to tolerate metformin and stopped taking this medication. He states that he has not taken any medications for diabetes since then. Patient to continue glipizide at home. Patient provided with diabetic education. Patient seen by extension educator. Diet and exercise recommended. This was discussed in detail with the patient. Taking medications as well as checking blood sugars at home was discussed in detail with the patient. Dopplers were done and no DVT was seen. Patient seen by podiatry. Patient also with aortic aneurysm. Patient will also need repeat imaging and outpatient follow-up. This was discussed in detail with the patient. Continue Norvasc and metoprolol for history of hypertension. Blood pressure is well controlled on these medications. Continue Flomax for history of BPH. Patient was seen by urology. Outpatient follow-up is recommended. Patient is doing well in physical rehabilitation. Patient is for discharge tomorrow. Case was discussed in detail with the patient regarding current diagnosis and treatment plan. All questions were answered.
[2018-03-27 16:57] VITALS: RESP 18; TEMP 98; O2SAT 98
[2018-03-28] MEDS: Enoxaparin 40 mg Syringe SC SCH (05:53)
[2018-03-28] MEDS: Pantoprazole 40 mg EC Tab PO SCH (05:54)
[2018-03-28] MEDS: Insulin Lispro (humaLOG) LOW Coverage SC SCH ×2 (06:41→11:40)
[2018-03-28] MEDS: Ammonium Lactate 12% Lotion (225 g) EXT SCH (09:25)
[2018-03-28] MEDS: Clotrimazole 1% Top Soln(10 ml) TOP SCH (09:25)
[2018-03-28 09:26] VITALS: BP 135/70; PULSE 87
--- NOTE | 2018-03-28 14:09 | CP.PCM.DIS ---
<Risa Roberts - Last Filed: 03/29/18 16:32> Provider - Provider Date of Admission: 03/20/18 16:07 Attending physician: Breana Norman MD Primary care physician: NO PRIMARY CARE PROVIDER Consults: Urologist: Elder Bird M.D. Time Spent in preparation of Discharge (in minutes): 60 Diagnosis - Discharge Diagnosis (1) Cellulitis Status: Resolved (2) Aortic aneurysm Status: Acute (3) Chronic venous insufficiency Status: Chronic (4) Right bundle branch block Status: Chronic (5) Calf pain Status: Resolved (6) Leg edema Status: Resolved (7) Diabetes Status: Chronic (8) HTN (hypertension) Status: Chronic Hospital Course - Lab Results Lab Results: Most Recent Lab Values POC Glucose (mg/dL) 78 mg/dL (65-110) 03/28/18 11:37 - Hospital Course Hospital Course: 72 year old male with past medical history of hypertension, diabetes mellitus, benign prostatic hypertrophy, who presented to [facility] for complaints of left lower extremity pain for 1 night and exacerbation of his chronic left lower extremity edema. The patient was admitted for evaluation and treatment of cellulitis. Patient was started on empiric rocephin for cellulitis. Imaging performed during the patient's admission include venous doppler of lower extremity, which was negative for deep vein thrombosis, CTA: negative for pulmonary embolism, however the patient was found to have an incidental finding of 4.4 x 4.2cm ascending aneurysm. The patient also received arterial duplex, which showed normal CALVIN and PVR. Echocardiogram was performed, and showed EF 55.2% with mild left ventricular hypertrophy, moderate valvular aortic stenosis, moderate mitral regurgitation, and and mild-moderate aortic regurgitation. During his admission, Cardiology was consulted and recommended annual CTA and echocardiogram for the incidental aneurysm with no surgical intervention indicated. During his admission, the patient also complained of urinary incontinence. Urology was consulted, as per patient's request but no major interventions or medical changes were made. Patient was medically optimized and Physical therapy recommended TCU, and the patient agreed to rehab. While in the TCU, the patient was advised to continue compression stockings at home. Patient states that he was placed on metformin approximately 2 years ago. Patient was unable to tolerate metformin and stopped taking this medication. He states that he has not taken any medications for diabetes since then. Patient to continue glipizide at home. Patient provided with diabetic education. Patient seen by farm marketer. Diet and exercise recommended. This was discussed in detail with the patient. Taking medications as well as checking blood sugars at home was discussed in detail with the patient. Patient seen by podiatry. Patient also with aortic aneurysm. Patient will also need repeat imaging and outpatient follow-up. This was discussed in detail with the patient. Continue Norvasc and metoprolol for history of hypertension. Blood pressure is well controlled on these medications. Continue Flomax for history of BPH. Patient was seen by urology. Outpatient follow-up is recommended. Patient is doing well in physical rehabilitation. Today the patient was seen at bedside and patient expressed that his left lower extremity pain and swelling have improved. Patient denies chest pain, shortness of breath, dizziness, diarrhea, constipation, and/or abdominal pain or any other complaints. Patient is medically optimized, was given prescriptions and 15 day supply of medications prior to discharge home, and all imaging reports were printed out and provided for patient to take when following up with primary care physician. Case was discussed in detail with the patient regarding current diagnosis and treatment plan. All questions were answered. Case was also discussed at length with attending physician Dr. Castro. - Date & Time of H&P Date of H&P: 03/28/18 Time of H&P: 18:00 Discharge Exam - Head Exam Head Exam: ATRAUMATIC, NORMAL INSPECTION, NORMOCEPHALIC - Eye Exam Eye Exam: Normal appearance, PERRL. absent: Conjunctival injection, Periorbital swelling, Scleral icterus Pupil Exam: NORMAL ACCOMODATION - ENT Exam ENT Exam: Mucous Membranes Moist, Normal Oropharynx - Neck Exam Neck exam: Normal Inspection - Respiratory Exam Respiratory Exam: NORMAL BREATHING PATTERN. absent: Accessory Muscle Use, Chest Wall Tenderness, Decreased Breath Sounds, Prolonged Expiratory Phase, Rales, Rhonchi, Wheezes Additional comments: chest expansion is equal bilaterally. - Cardiovascular Exam Cardiovascular Exam: REGULAR RHYTHM Additional comments: grade II/ systolic harsh murmur appreciated upon auscultation of the right upper sternal border and grade II/ holosystolic murmur appreciated upon auscultation along the apex. No murmur no rubs no gallops. - GI/Abdominal Exam GI & Abdominal Exam: Normal Bowel Sounds, Soft. absent: Bruit, Diminished Bowel Sounds, Distended, Hyperactive Bowel Sounds, Tenderness - Extremities Exam Extremities exam: normal capillary refill Additional comments: Left lower extremity with some edema when compared to right. Hyperpigmentation appreciated in left lower extremity. - Back Exam Back exam: FULL ROM, NORMAL INSPECTION. absent: paraspinal tenderness, rash noted - Neurological Exam Neurological exam: Alert, CN II-XII Intact, Normal Gait, Oriented x3 - Psychiatric Exam Psychiatric exam: Normal Affect, Normal Mood - Skin Skin Exam: Dry, Intact, Normal Color (left lower extremity is hyperpigmented and with edema ), Warm Discharge Plan - Discharge Medications Prescriptions: amLODIPine [Norvasc] 5 mg PO DAILY #15 tab Atorvastatin [Lipitor] 10 mg PO DIN #15 tab Blood Sugar Diagnostic [Test Strips] 1 each [facility] ACHS #50 strip Gabapentin [Neurontin] 300 mg PO DAILY #15 cap GlipiZIDE [Glucotrol] 5 mg PO 0700 #15 tab Lancets 1 each [facility] ACHS #50 each Metoprolol Tartrate 50 mg PO BID #30 tablet Tamsulosin [Flomax] 0.4 mg PO BID #15 cap - Follow Up Plan Condition: GOOD Disposition: HOME/ ROUTINE Patient education suggested?: Yes Instructions: Type 2 Diabetes, Heart Healthy Diet, High Blood Pressure (DC), Carbohydrate Counting Diet, Dependent Edema (DC) Additional Instructions: Follow up with your primary care doctor within 3 days. Take the CAT scan and echo results provided to you to your doctor's office. You will need repeat imaging in 6-12 months. Monitor blood sugars daily at home. Make sure to follow up with your primary care doctor for continued monitoring of diabetes. Please make sure to get any refills needed on your medications from your primary care doctor. Take new medications as prescribed. Your metoprolol dose has been increased from daily to twice a day. Follow up with the urologist Dr. Bird within 3-5 days. Use compression stockings for swelling in your legs. Referrals: PCP,NO [Primary Care Provider] - Elder Bird MD [Staff Provider] - <Lexy Castro - Last Filed: 03/29/18 19:02> Provider - Provider Date of Admission: 03/20/18 16:07 Attending physician: Breana oNrman MD Primary care physician: NO PRIMARY CARE PROVIDER Hospital Course - Lab Results Lab Results: Most Recent Lab Values POC Glucose (mg/dL) 78 mg/dL (65-110) 03/28/18 11:37 Attending/Attestation - Attestation I have personally seen and examined this patient.: Yes I have fully participated in the care of the patient.: Yes I have reviewed all pertinent clinical information, including history, physical exam and plan: Yes Notes (Text): Patient seen and examined by me at 1:00 PM 03/28/18 with resident. Case including discharge planning was discussed with resident. Agree with above with following additions and changes. Patient is a 72-year-old male with past medical history significant for hypertension, type 2 diabetes, BPH, left lower extremity DVT, and obesity, the presented to the emergency room with left lower extremity pain and chronic swelling. Patient was admitted with left lower extremity pain and swelling. DVT was ruled out. Patient was treated for left lower she may cellulitis with Rocephin. Patient with chronic venous stasis of lower extremities. Patient did have leukocytosis which resolved. Patient had a CT angiogram done to rule out PE. Patient was incidentally found to have a 4.4 x 4.2 aneurysm of the descending aorta. Patient was evaluated by cardiology who recommended outpatient repeat imaging and echo in 1 year. Patient was also seen by podiatry and placed on Lotrisone cream. Cellulitis resolved. Cultures were negative. Patient was continued on glipizide for history diabetes. Hemoglobin A1c was 7.6. Patient was seen by dietitian. Patient was counseled on diet and exercise as well as close follow-up for diabetes. Patient was previously on metformin and stopped this medication on his own without any further follow-up for diabetes approximately 2 years ago. Patient continued on Norvasc and metoprolol for hypertension. Patient continued on Flomax for BPH. Patient was seen by urology who recommended outpatient follow-up. Patient did well with rehabilitation. All symptoms improved upon discharge. He shouldn't was cleared for discharge by all consultants. Physical exam: Gen: Patient is awake and alert sitting up in chair in no acute distress HEENT: Normocephalic atraumatic, extraocular muscles intact, pupils equal reactive, oropharynx is pink and moist, no pharyngeal erythema or exudate appreciated, neck is supple. Cardiovascular: Normal rhythm, normal S1-S2, positive systolic murmur. No rubs or gallops appreciated Pulmonary: Normal respiratory effort. No rhonchi, rales, or wheezing appreciated Gastrointestinal: Soft, nontender, nondistended, positive bowel sounds all 4 quadrants, no guarding. Positive globular abdomen. Musculoskeletal: Moves all extremities, no calf tenderness. Left lower extremity with some edema when compared to right. Central nervous system: AAO 3 Dermatologic: Skin warm and dry. Positive bilateral lower extremity venous stasis color changes. Please see chart for full details. Follow-up instructions: Patient to follow-up with his primary care doctor within 3 days. Patient to take results provided to him for his CAT scan and echo to his doctor's office. Patient will need repeat imaging in 6-12 months for aortic aneurysm. Patient monitor sugars daily at home. Patient to follow-up with his primary care doctor for continued monitoring of diabetes. Patient to get any refills needed for his medications from his primary doctor. Metoprolol dose was increased from daily to 2 times a day. Prescription additions were given. Patient to follow-up with urologist Dr. Bird within 3-5 days. Patient to use compression stockings for swelling in his legs. All instructions were explained to the patient in detail. Written Instructions given to patient. Patient both understands and agrees to all instructions. Time spent in discharging the patient including chart review, medication reconciliation, discussion with the patient, medical assistant cardiology, consultants, and nursing staff was approximately 45 minutes.
== END 2018-03-28 14:35 | disposition home health service (06) | DRG 603 ==
LOC: TRCU 16:07
PROVIDERS: ADMIT Internal Medicine; ATTEND Internal Medicine
PROC: F07Z9FZ Gait Training/Functional Ambulation Treatment using Assistive, Adaptive, Supportive or Protective Equipment (ICD-10-PCS; principal; 2018-03-22)
PROC: F0726YZ Therapeutic Exercise Treatment of Neurological System - Lower Back / Lower Extremity using Other Equipment (ICD-10-PCS; 2018-03-22)
PROC: F08Z1FZ Dressing Techniques Treatment using Assistive, Adaptive, Supportive or Protective Equipment (ICD-10-PCS; 2018-03-22)
DX: L03.116 Cellulitis of left lower limb (principal); I10 Essential (primary) hypertension; E11.65 Type 2 diabetes mellitus with hyperglycemia; I45.10 Unspecified right bundle-branch block; I71.2 Thoracic aortic aneurysm, without rupture; I08.0 Rheumatic disorders of both mitral and aortic valves; I87.2 Venous insufficiency (chronic) (peripheral); K21.9 Gastro-esophageal reflux disease without esophagitis; N40.1 Benign prostatic hyperplasia with lower urinary tract symptoms; N39.498 Other specified urinary incontinence; I87.8 Other specified disorders of veins; E66.9 Obesity, unspecified; Z79.82 Long term (current) use of aspirin; Z82.49 Family history of ischemic heart disease and other diseases of the circulatory system; Z68.37 Body mass index [BMI] 37.0-37.9, adult; Z86.718 Personal history of other venous thrombosis and embolism